=== PATIENT | female | born 1950 | race Caucasian/White ===

== ENCOUNTER 2022-10-21 07:38 | Outpatient (REF) | payer MEDICARE, SELFPAY ==
--- NOTE | ~2022-10-21 | CT_ITS ---
EXAMINATION: CT HEAD WITHOUT CONTRAST CLINICAL INFORMATION: Amnesia COMPARISON: None available. TECHNIQUE: Contiguous axial imaging was performed from the skull base to vertex without intravenous administration of contrast. This CT examination was performed using dose optimization techniques as appropriate, variously including the following: *Automated exposure control *Adjustment of mA and/or kV according to patient size (this includes techniques or standardized protocols for targeted exams where dose is matched to indication/reason for exam; i.e. extremities or head) *Use of iterative reconstruction technique DLP: 712 mGy-cm FINDINGS: There is no evidence of an extra-axial collection. There is no evidence of intra or extra-axial hemorrhage. The ventricles and extra-axial CSF spaces are appropriate. Buckley-white matter differentiation is normal. A small calcification or ossification in the right frontal lobe, question from right anterior falx meningioma. This measures 2 x 1.4 cm in AP and longitudinal dimension sagittal reconstructed image 59 and 1 cm in transverse dimension coronal 128. No other mass, mass effect or infarct. No skull fracture. Degenerative changes at the left temporomandibular joint. Visualized paranasal sinuses, mastoid air cells and middle ears are clear. CT/CT head/brain wo IV con IMPRESSION: Question right frontal falx meningioma. Degenerative changes at the left temporomandibular joint.
== END 2022-10-21 07:39 | disposition home or self-care (01) ==
LOC: HO.CT 07:38
PROVIDERS: PCP Nurse Practitioner Family; Visit Provider Nurse Practitioner Family
DX: R41.3 Other amnesia (principal)
CPT/HCPCS: 70450

== ENCOUNTER 2023-01-11 16:28 | Outpatient (REF) | payer MEDICARE, SELFPAY ==
--- NOTE | ~2023-01-11 | MR_ITS ---
MR BRAIN WITHOUT AND WITH CONTRAST CLINICAL INFORMATION: Benign neoplasm of the meninges. COMPARISON: Head CT 10/21/2022. TECHNIQUE: Multiplanar, multisequence MRI of the brain was obtained before and after the intravenous administration of 7 mL of Gadavist. FINDINGS: There is a 2 cm AP by 1.4 cm TV by 1.6 cm CC homogeneously enhancing extra-axial mass along the high right falx cerebri that is most compatible with a meningioma. There is no adjacent parenchymal edema. There is no additional pathologic enhancement intracranially. There is no hydrocephalus, extra-axial surface collection, or herniation. There is mild chronic microangiopathy. The major flow voids at the skull base are preserved. There is no acute infarct on diffusion-weighted imaging. There is no intracranial hemorrhage on the gradient recalled echo acquisition. The midline structures are normal. The cerebellar tonsils are normally positioned. The cerebellum and brainstem are normal. The craniocervical junction is normal. Osseous marrow signal intensity is homogenous. The visualized soft tissues are unremarkable. MR/MR head/brain wo/w con IMPRESSION: There is a 2 cm high right parafalcine meningioma. No adjacent parenchymal edema.
[2023-01-11] MEDS: gadobutroL 7.5 ML VIAL IVPUSH (17:21)
== END 2023-01-11 16:29 | disposition home or self-care (01) ==
LOC: HO.MRI 16:28
PROVIDERS: PCP Nurse Practitioner Family; Visit Provider Nurse Practitioner Family
DX: D32.9 Benign neoplasm of meninges, unspecified (principal)
CPT/HCPCS: 70553; A9585

== ENCOUNTER 2023-04-06 09:03 | Outpatient (AMB) | payer MEDICARE, SELFPAY ==
--- NOTE | 2023-04-06 09:11 | AM.OFFVISMDC ---
Intake Vital Signs 04/06/23 09:12 Height 5 ft 1.02 in Weight 155 lb BMI 29.3 BP 102/60 Blood Pressure Location Lt brachial Position Sitting Pulse 91 Pulse Source Pulse Oximeter Pulse Oximetry (%) 96 Oxygen Delivery Method Room Air Intake Visit Reasons: AWV, Hypothyroidism Intake Note: Patient here for an annual wellness visit, hypothyroidism Conveyor Worker Required: No Accompanied by: Spouse Allergies No Known Allergies Allergy (Verified 04/06/23 09:26) Medication List - Last Reconciled 04/06/23 by CRISTOPHER Puckett levothyroxine 112 mcg PO DAILY HPI HPI Comments History of Present Illness Details 72-year-old female past medical history significant for hypothyroidism, meningioma. Patient presents today for annual wellness visit. Patient was seen by [facility]surgery for evaluation of meningioma, states benign brain mass recommended follow-up in 6 months for repeat MRI. Patient reports has upcoming appointment to establish care with Neurology for ongoing memory problems. Mammogram: 2 years ago, ordered Bone density: ordered Colonoscopy:4 years ago, normal, Eye exam: July 2022. Fasting labs ordered UTD pna vaccine, Flu shot declined [place] of care was reviewed with patient patient was provided with a written screening schedule. Healthcare proxy MOLST forms given to patient has been advised to bring completed forms backed office to be scanned to chart. [facility] Medical History (Updated 04/06/23 @ 09:39 by CRISTOPHER Puckett) Type 2 diabetes mellitus Surgical History H/O abdominoplasty S/P complete hysterectomy Family History Mother HTN (hypertension) Father Alcoholic cirrhosis of liver Substance use disorder Brother Alcoholic cirrhosis of liver Substance use disorder Sister Liver problem Social History Housing: House Alcohol intake: current Alcohol intake frequency: holidays/special occasions only Patient Tobacco Use Status: Never used Tobacco service: No Current occupational status: retired Cognitive needs: No Hearing needs: No Vision needs: Yes Questionnaire Medicare Wellness Checkup [age] What gender do you identify with?: female During the past 4 weeks, how much have you been bothered by emotional problems such as feeling anxious, depressed, irritable, sad or downhearted, and blue?: slightly During the past 4 weeks, has your physical & emotional health limited your social activities with family, friends, neighbors, or groups?: not at all During the past 4 weeks, how much bodily pain have you generally had?: no pain During the past 4 weeks, was someone available to help you if you needed & wanted help?: yes, as much as I wanted During the past 4 weeks, what was the hardest physical activity you could do for at least 2 minutes?: moderate Can you get to places out of walking distance without help? (For eg., can you travel alone on buses, taxis or drive your car?): Yes Can you go shopping for groceries or clothes without someone's help?: Yes Can you prepare your own meals?: Yes Can you do your housework without help?: Yes Because of any health problems, do you need the help of another person with your personal care needs such as eating, bathing, dressing or getting around the house?: No Can you handle your own money without help?: Yes During the past 4 weeks, how would you rate your health in general?: good During the past 4 weeks how have things been going for you?: good & bad parts about equal Are you having difficulties driving your car?: no Do you always fasten your seat belt when you are in a car?: yes, usually During past 4 weeks, have you been bothered by the following: never: Falling or dizzy when standing up, Sexual problems?, Trouble eating well?, Teeth or denture problems? and Problems using the telephone? and sometimes: Tiredness or fatigue? Have you fallen 2 or more times in the past year?: No Are you afraid of falling?: No Are you a smoker?: no During the past 4 weeks, how many drinks of wine, beer, or other alcoholic beverages did you have?: no alcohol at all Do you exercise for about 20 minutes 3 or more times a week?: yes, some of the time Have you been given information to help with the following?: no: Hazards in your house that might hurt you? and no: Keeping track of your medications? How often do you have trouble taking medicines the way you have been told to take them?: I always take medicine as prescribed How confident are you that you can control & manage most of your health problems?: very confident What is your race?: or origin or descent Mini Mental State Exam (MMSE) Orientation What is the (year) (season) (date) (day) (month)?: year, season, date, day and month Score Score: 5 Activity of Daily Living Bathing - sponge bath, tub bath or shower: receives no assistance (gets in/out by self, if usual bathing means Dressing - getting clothes from closets & drawers, including inner/outer garments & fasteners.: gets clothes & gets completely dressed without help Toileting - going to the 'toilet room' for urine/bowel elimination & cleaning self/arranging clothes: goes to toilet room, cleans self, arranges clothes without help Transfer: moves in & out of bed and chair without help (may use support object) Continence: controls urination/bowel movements completely by self Feeding: feeds self without help Total Score: 0 Information obtained from: patient Using telephone: independent Traveling: independent Shopping: independent Preparing meals: independent Housework: independent Taking medicine: independent Managing money: independent PHQ-9 Over the last 2 weeks, how often have you been bothered by any of the following problems? 1. Little interest or pleasure in doing things: more than half the days 2. Feeling down, depressed, or hopeless: more than half the days 3. Trouble falling or staying asleep, or sleeping too much: more than half the days 4. Feeling tired or having little energy: more than half the days 5. Poor appetite or overeating: several days 6. Feeling bad about yourself - or that you are a failure or have let yourself or your family down: several days 7. Trouble concentrating on things, such as reading the newspaper or watching television: more than half the days 8. Moving or speaking so slowly that other people could have noticed. Or the opposite - being so fidgety or restless that you have been moving around a lot more than usual: not at all 9. Thoughts that you would be better off or of hurting yourself in some way: not at all Total score: 12 Depression Screening Interpretation: Positive (Referred to counselor) Depression Screening Done: Yes 50143 - PHQ-9 Billing: Yes Source: Developed by Drs. Odilon Copeland, Maritza Valladares, Odin Arndt and colleagues, with an educational parris from [employer]. Thrive Questionnaire Date Thrive assessed: 04/06/23 I am a: Patient What is your living situation today?: I have a steady place to live Within the past 12 months, did the food you bought not last and you didn't have the money to get more?: Never true Within the past 12 months, did you worry whether your food would run out before you got money to buy more?: Never true Do you have trouble paying for medicines?: No Do you have trouble getting transportation to medical appointments?: No Do you have trouble paying your heating and electricity bill?: No Do you have trouble taking care of your child, family member or friend?: No Do you have trouble with day-to-day activities such as bathing, preparing meals, shopping, managing finances, etc.?: No Are you currently unemployed and looking for a job?: No Are you interested in more education?: No Please select the resources that you would like help with: None Currently or been in a relationship where the following occur: no concerns reported JANES-7 AMB Questionnaire JANES-7 Date JANES - 7 assessed: 04/06/23 Feeling nervous, anxious, or on edge: 0 = Not at all Not being able to stop or control worryin = Not at all Worrying too much about different things: 0 = Not at all Trouble relaxin = Not at all Being so restless that it is hard to sit still: 0 = Not at all Becoming easily annoyed or irritable: 0 = Not at all Feeling afraid as if something awful might happen: 0 = Not at all Total JANES-7 score (0-4 normal; 5-9 mild; 10-14 moderate; 15-21 severe): 0 Source: Developed by Drs. Odilon Copeland, Maritza Valladares, Odin Arndt and colleagues, with an educational parris from [employer]. JANES-7 Assessment Billing JANES-7 Assessment Tool: JANES-7 Assessment 84831 Physical Exam Vital Signs: Last Vital Signs Pulse 91 04/06/23 09:12 BP 102/60 04/06/23 09:12 Pulse Ox 96 04/06/23 09:12 Oxygen Delivery Method Room Air 04/06/23 09:12 BMI result Body Mass Index 29.3 Const General: cooperative and no acute distress Orientation/consciousness: patient oriented x3 HEENT Ears: other (whisper test: pass) Neuro General: patient oriented x3 Gait exam (Neuro): Normal gait present Coordination: tandem gait normal and Romberg test negative Office Procedures Flu Questionnaire Does the patient have a severe egg allergy?: No Immunizations flu vacc [id number] 6mos up(PF) 60 mcg(15 mcgx4)/0.5 mL IM syringe Performing Provider: CRISTOPHER Puckett [facility] Documented (not given) by: TERI Laureano on 04/06/23 09:23 Reason Not Given: Patient Refused Assessment & Plan Assessment & Plan (1) Depression: Code(s): F32.A - Depression, unspecified Plan: Referral entered to counseling. Denies SI/HI (2) Medicare annual wellness visit, initial: Code(s): Z00.00 - Encounter for general adult medical examination without abnormal findings Plan: Follow up in 1 year Plan Follow up in 6 months. Orders: Orders Influenza [id number] Immunization Today Z23 - Encounter for immunization Complete Blood Count Auto Diff Today Z13.0 - Encounter for screening for diseases of the blood and blood-forming organs and certain disorders involving the immune mechanism Vitamin D 25-OH Total Today Z13.21 - Encounter for screening for nutritional disorder Hemoglobin A1c Today E11.9 - Type 2 diabetes mellitus without complications Comprehensive [place]. Panel Fast Today F32.A - Depression, unspecified Lipid Panel Today Z13.220 - Encounter for screening for lipoid disorders TSH reflex Free T4 Today E89.0 - Postprocedural hypothyroidism, Y84.2 - Radiological procedure and radiotherapy as the cause of abnormal reaction of the patient, or of later complication, without mention of misadventure at the time of the procedure MM screening mammo BI Today Z12.31 - Encounter for screening mammogram for malignant neoplasm of breast XR DEXA axial skeleton Today N95.9 - Unspecified menopausal and perimenopausal disorder Referrals Counseling Referral F32.A - Depression, unspecified Medications: New levothyroxine 112 mcg PO DAILY 90 tabs 1RF Quality Reporting (2019) Depression/Bipolar (159/160/161/177) PHQ-9: Total score: 12 Coding Level of Care Code Medicare First (G0438) Diagnoses Depression F32.A Medicare annual wellness visit, initial Z00.00 Additional Codes JANES-7 Assessment Billing - JANES-7 Assessment Tool: JANES-7 Assessment [id number] ([id number]) Advance Care Planning Date of discussion: 04/06/23 Who was present: Patient and Forms completed: Health Care Proxy and MOLST Actual minutes spent: 2 Did not discuss due to Cultural/Spiritual beliefs: No
[2023-04-06 09:12] VITALS: BP 102/60; PULSE 91; O2SAT 96; BMI 29.3
== END 2023-04-06 09:50 | disposition home or self-care (01) ==
PROVIDERS: PCP Nurse Practitioner Family; Visit Provider Nurse Practitioner Family
DX: Z00.00 Encounter for general adult medical examination without abnormal findings (principal); F32.A Depression, unspecified
CPT/HCPCS: G0438; G0439

== ENCOUNTER 2023-05-04 08:46 | Outpatient (REF) | payer MEDICARE, SELFPAY ==
[2023-05-04 09:05] LABS: MANUAL DIFF FLAG NO
[2023-05-04 10:01] LABS: Basophils Percent Auto 0.7 % (0-2); Eosinophils Absolute Auto 0.2 X10*3/uL (0.0-0.4); Eosinophils Percent Auto 3.2 % (0-4); Hematocrit 40.7 % (37.0-47.0); Hemoglobin 13.2 g/dl (12.0-16.0); Imm Gran Abs Auto 0.02 X10*3/uL (0.00-0.03); Imm Gran Pct Auto 0.3 % (0.0-0.4); Lymphocytes Absolute Auto 1.8 X10*3/uL (1.2-4.9); Lymphocytes Percent Auto 29.6 % (20-40); Mean Corpuscular HGB Conc 32.4 g/dl (31.0-35.0); Mean Corpuscular Hemoglobin 29.4 pg (27.0-33.0); Mean Corpuscular Volume 90.6 fL (80.0-98.0); Mean Platelet Volume 10.4 fL (9.4-12.3); Monocytes Absolute Auto 0.4 X10*3/uL (0.1-1.2); Monocytes Percent Auto 6.2 % (2-11); Neutrophils Absolute Auto 3.6 x10*3/uL (2.0-8.3); Platelet Count 266 X10*3/uL (160-400); Red Blood Count 4.49 X10*6/uL (4.20-5.50); Red Cell Distribution Width 13.2 % (11.0-16.0)
[2023-05-04 10:29] LABS: Estimated Average Glucose 126 mg/dL
[2023-05-04 11:05] LABS: Alanine Aminotransferase 13 U/L (0-31); Albumin Level 4.3 g/dL (3.5-5.0); Alkaline Phosphatase 79 U/L (39-117); Anion Gap 14 (12-20); Aspartate Amino Transferase 18 U/L (5-31); Bilirubin Total 0.9 mg/dL (0.0-1.0); Blood Urea Nitrogen 14 mg/dL (9-16); Calcium 9.4 mg/dL (8.4-10.2); Carbon Dioxide 23 mmol/L (22-29); Chloride 108 mmol/L (96-108); Cholesterol 257 mg/dL (<200); Estimated Glomerular Filt Rate 53; Glucose Fasting 126 mg/dL (60-99); HDL Cholesterol 43 mg/dL (>40); LDL Cholesterol Calculated 191 mg/dL (<100); Sodium 141 mmol/L (135-145); Total Protein 7.6 g/dL (6.5-8.0); Triglycerides 115 mg/dL (<150)
[2023-05-04 11:06] LABS: TSH reflex Free T4 2.71 uIU/mL (0.32-4.0); Vitamin D 25-OH Total 29.2 ng/mL (>30)
== END 2023-05-04 08:47 | disposition home or self-care (01) ==
LOC: HO.LAB 08:46
PROVIDERS: PCP Nurse Practitioner Family; Visit Provider Nurse Practitioner Family
DX: E11.9 Type 2 diabetes mellitus without complications (principal); F32.A Depression, unspecified; E89.0 Postprocedural hypothyroidism; Y84.2 Radiological procedure and radiotherapy as the cause of abnormal reaction of the patient, or of later complication, without mention of misadventure at the time of the procedure; Z13.220 Encounter for screening for lipoid disorders; Z13.0 Encounter for screening for diseases of the blood and blood-forming organs and certain disorders involving the immune mechanism; Z13.21 Encounter for screening for nutritional disorder
CPT/HCPCS: 36415; 80053; 80061; 82306; 83036; 84443; 85025

== ENCOUNTER 2023-05-10 16:19 | Outpatient (REF) | payer MEDICARE, SELFPAY ==
[2023-05-10 17:29] LABS: Influenza A PCR NEGATIVE (Negative); Influenza B PCR NEGATIVE (Negative); Resp Syncy Virus RNA Qual PCR NEGATIVE (Negative); SARS COV2 PCR INHOUSE NEGATIVE (Negative)
== END 2023-05-10 16:20 | disposition home or self-care (01) ==
LOC: HO.LAB 16:19
PROVIDERS: PCP Nurse Practitioner Family; Visit Provider Nurse Practitioner Family
DX: Z11.52 Encounter for screening for COVID-19 (principal); R09.89 Other specified symptoms and signs involving the circulatory and respiratory systems; Z20.822 Contact with and (suspected) exposure to COVID-19
CPT/HCPCS: 0241U

== ENCOUNTER 2023-05-31 08:24 | Outpatient (REF) | payer OTHER, SELFPAY ==
--- NOTE | ~2023-05-31 | MM_ITS ---
EXAMINATION: MM SCREENING DIGITAL BREAST TOMOSYNTHESIS, BILATERAL CLINICAL INFORMATION: Screening. Asymptomatic. COMPARISON: Mammography: Left mammogram-ductogram 09/26/2014 ([facility]). No additional priors. TECHNIQUE: Digital breast tomosynthesis is performed in both the craniocaudal and mediolateral oblique views along with computer-aided detection (CAD). Synthesized 2D images are generated from the tomosynthesis. FINDINGS: The breasts are heterogeneously dense, which may obscure small masses (ACR BI-RADS breast composition Category c). There is a post benign biopsy clip in the 9:00 axis of the left breast. There are benign type calcifications scattered in both breasts. No suspicious or aggressive changes. In the upper outer right breast, anterior one third, there is a focal asymmetric density for which diagnostic views are suggested. Recommend spot compression right MLO, right CC, and a full-field 3-D lateral ML view, with ultrasound to follow if finding should persist. There are no suspicious findings in the left breast. MM/MM tomosynthesis screening BI IMPRESSION: Focal asymmetric density right breast upper outer quadrant, anterior one third, for which diagnostic views are recommended as described above. No suspicious findings in the left breast. ASSESSMENT: BI-RADS BI-RADS 0 - Incomplete: Needs additional Imaging. RECOMMENDATION: 1. Additional views of the right breast. 2. Targeted ultrasound if warranted after review of the additional views. 3. Radiology department staff will contact the patient for additional imaging. Additional Imaging required This examination should not preclude the clinical evaluation of a suspicious palpable abnormality. This patient's information was entered into a reminder system with a target due date for their next mammogram.
== END 2023-05-31 08:25 | disposition home or self-care (01) ==
LOC: HO.MAMMO 08:24
PROVIDERS: PCP Nurse Practitioner Family; Visit Provider Nurse Practitioner Family
DX: Z12.31 Encounter for screening mammogram for malignant neoplasm of breast (principal); Z13.820 Encounter for screening for osteoporosis; Z78.0 Asymptomatic menopausal state
CPT/HCPCS: 77063; 77067; 77080

== ENCOUNTER → 2023-05-31 09:00 | Outpatient (BNV) | payer OTHER, SELFPAY | PROVIDERS: PCP Nurse Practitioner Family; Visit Provider Radiology Diagnostic Radiology | DX: Z12.31 Encounter for screening mammogram for malignant neoplasm of breast (principal) | CPT/HCPCS: 77063; 77067 ==

== ENCOUNTER 2023-07-03 12:51 | Outpatient (REF) | payer OTHER, SELFPAY ==
--- NOTE | ~2023-07-03 | MM_ITS ---
EXAMINATION: MM DIAGNOSTIC DIGITAL BREAST TOMOSYNTHESIS, RIGHT CLINICAL INFORMATION: Follow-up for focal asymmetric density right breast upper outer quadrant, anterior one third. COMPARISON: Mammography: 05/31/2023. 5. 1:15. TECHNIQUE: Digital breast tomosynthesis is performed. 2D images are generated from the tomosynthesis. The following views are obtained: 3-D full-field right mediolateral view, as well as right 2-D spot magnification CC and MLO views. FINDINGS: The breasts are heterogeneously dense, which may obscure small masses (ACR BI-RADS breast composition Category c). Additional views done show complete dissipation of the focal asymmetry seen in the right breast upper outer quadrant. Findings are consistent with superimposition artifact of normal overlapping breast tissue. There is no persistent suspicious abnormality. No new findings right breast. MM/MM tomosynthesis added views R IMPRESSION: No findings suspicious for malignancy. No persistent abnormality after diagnostic views. Recommend the patient resume annual routine screening. ASSESSMENT: BI-RADS BI-RADS 1 - Negative RECOMMENDATION: 1 year F/U Results were provided to the patient at time of visit by the technologist. This patient's information was entered into a reminder system with a target due date for their next mammogram.
== END 2023-07-03 12:52 | disposition home or self-care (01) ==
LOC: HO.MAMMO 12:51
PROVIDERS: PCP Nurse Practitioner Family; Visit Provider Nurse Practitioner Family
DX: N64.89 Other specified disorders of breast (principal)
CPT/HCPCS: 77061; 77065

== ENCOUNTER → 2023-07-03 13:00 | Outpatient (BNV) | payer OTHER, SELFPAY | PROVIDERS: PCP Nurse Practitioner Family; Visit Provider Radiology Diagnostic Radiology | DX: N63.11 Unspecified lump in the right breast, upper outer quadrant (principal) | CPT/HCPCS: 77065; G0279 ==

== ENCOUNTER 2023-07-06 14:13 | Outpatient (AMB) | payer OTHER, SELFPAY ==
[2023-07-06 14:15] VITALS: BP 108/68; PULSE 100; O2SAT 98; BMI 26.2
--- NOTE | 2023-07-06 14:15 | MHC.PC.OV ---
Vital Signs 07/06/23 14:15 Height 5 ft 1.02 in Weight 139 lb BMI 26.2 BP 108/68 Blood Pressure Location Lt brachial Position Sitting Pulse 100 Pulse Source Pulse Oximeter Pulse Oximetry (%) 98 Oxygen Delivery Method Room Air Intake Visit Reasons: dizzy spells Intake Note: pt states dizziness and left leg pain X2-3months Sugar Laboratory Assistant Required: No Allergies No Known Allergies Allergy (Verified 07/06/23 14:15) Medication List - Last Reconciled 07/06/23 by Marilynn Weston MD levothyroxine 112 mcg PO DAILY magnesium 200 mg PO DAILY Tobacco use date assessed: 07/06/23 Fall risk assessment: No Falls in past year Last assessed Fall Risk: 07/06/23 Dental Screening Dental Screen Date: 07/06/23 HPI dizzy spells HPI Details 72-year-old female with generalized anxiety and depression last seen in March 2023. Noted weight loss. Blood work done April. noted weight loss and loss of apetitte. R ear pain [facility] Medical History (Updated 07/06/23 @ 15:25 by Marilynn Weston MD) Type 2 diabetes mellitus Surgical History H/O abdominoplasty S/P complete hysterectomy Family History Mother HTN (hypertension) Father Alcoholic cirrhosis of liver Substance use disorder Brother Alcoholic cirrhosis of liver Substance use disorder Sister Liver problem Social History Housing: House Alcohol intake: current Alcohol intake frequency: holidays/special occasions only Patient Tobacco Use Status: Never used Tobacco service: No Current occupational status: retired Cognitive needs: No Hearing needs: No Vision needs: Yes Questionnaire PHQ-9 Over the last 2 weeks, how often have you been bothered by any of the following problems? 1. Little interest or pleasure in doing things: more than half the days 2. Feeling down, depressed, or hopeless: more than half the days 3. Trouble falling or staying asleep, or sleeping too much: more than half the days 4. Feeling tired or having little energy: more than half the days 5. Poor appetite or overeating: several days 6. Feeling bad about yourself - or that you are a failure or have let yourself or your family down: several days 7. Trouble concentrating on things, such as reading the newspaper or watching television: more than half the days 8. Moving or speaking so slowly that other people could have noticed. Or the opposite - being so fidgety or restless that you have been moving around a lot more than usual: not at all 9. Thoughts that you would be better off or of hurting yourself in some way: not at all Total score: 12 Depression Screening Interpretation: Positive (Referred to counselor) Depression Screening Done: Yes 96630 - PHQ-9 Billing: Yes Source: Developed by Drs. Odilon Copeland, Odin Hartley and colleagues, with an educational parris from [employer]. Thrive Questionnaire Date Thrive assessed: 07/06/23 I am a: Patient What is your living situation today?: I have a steady place to live Within the past 12 months, did the food you bought not last and you didn't have the money to get more?: Never true Within the past 12 months, did you worry whether your food would run out before you got money to buy more?: Never true Do you have trouble paying for medicines?: No Do you have trouble getting transportation to medical appointments?: No Do you have trouble paying your heating and electricity bill?: No Do you have trouble taking care of your child, family member or friend?: No Do you have trouble with day-to-day activities such as bathing, preparing meals, shopping, managing finances, etc.?: No Are you currently unemployed and looking for a job?: No Are you interested in more education?: No Please select the resources that you would like help with: None THRIVE Score: 0 AUDIT C Alcohol Use Questionnaire (AUDIT-C) 1. How often do you have a drink containing alcohol?: Never 3. How often do you have six or more drinks on one occasion?: Never Total Score: 0 JANES-7 AMB Questionnaire JANES-7 Date JANES - 7 assessed: 07/06/23 Source: Developed by Drs. Odilon Copeland, Odin Hartley and colleagues, with an educational parris from [employer]. Physical exam (Primary Care) Vital Signs: Last Vital Signs Pulse 100 07/06/23 14:15 BP 108/68 07/06/23 14:15 Pulse Ox 98 07/06/23 14:15 Oxygen Delivery Method Room Air 07/06/23 14:15 BMI result Body Mass Index 26.2 Tobacco/Smoking Status: Tobacco use Status Tobacco use date assessed 07/06/23 07/06/23 14:17 Patient Tobacco Use Status Never used Tobacco 07/06/23 14:17 PHQ-9: PHQ-9 Score PHQ-9: Total score 12 07/06/23 14:54 Depression Screening Interpretation: Positive (Referred to counselor) Thrive Assessment: Date of Thrive Assessment Date Thrive assessed 07/06/23 07/06/23 14:17 Const General: alert; No acute distress Eyes Conjunctivae: conjunctivae normal Resp Auscultation: clear to auscultation bilaterally Cardio Rate: regular rate Rhythm: regular rhythm GI Inspection: Yes normal to inspection Extrem General: Yes normal to inspection and No edema Assessment and Plan Assessment & Plan (1) Type 2 diabetes mellitus: Code(s): E11.9 - Type 2 diabetes mellitus without complications Plan: Decrease the amount of carbohydrate intake, pasta, bread, rice and potatoes are all sugar and that is aside from all the sweet stuff, remember that fruits are good but they are Sweet also. Hemoglobin A1c goal of less than 7.0. 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: Code(s): E89.0 - Postprocedural hypothyroidism; Y84.2 - Radiological procedure and radiotherapy as the cause of abnormal reaction of the patient, or of later complication, without mention of misadventure at the time of the procedure Plan: Continue with thyroid medication (3) Depression: Code(s): F32.A - Depression, unspecified Plan: Discussion about treatment and counseling (4) Meningioma: Code(s): D32.9 - Benign neoplasm of meninges, unspecified (5) Weight loss: Code(s): R63.4 - Abnormal weight loss (6) Colon cancer screening: Code(s): Z12.11 - Encounter for screening for malignant neoplasm of colon Orders: Orders Comprehensive Met. Panel 3 Months E89.0 - Postprocedural hypothyroidism, Y84.2 - Radiological procedure and radiotherapy as the cause of abnormal reaction of the patient, or of later complication, without mention of misadventure at the time of the procedure Hemoglobin A1c 3 Months E89.0 - Postprocedural hypothyroidism, Y84.2 - Radiological procedure and radiotherapy as the cause of abnormal reaction of the patient, or of later complication, without mention of misadventure at the time of the procedure Complete Blood Count Auto Diff 3 Months E89.0 - Postprocedural hypothyroidism, Y84.2 - Radiological procedure and radiotherapy as the cause of abnormal reaction of the patient, or of later complication, without mention of misadventure at the time of the procedure Free T4 (Free Thyroxine) 3 Months E89.0 - Postprocedural hypothyroidism, Y84.2 - Radiological procedure and radiotherapy as the cause of abnormal reaction of the patient, or of later complication, without mention of misadventure at the time of the procedure Thyroid Stimulating Hormone 3 Months E89.0 - Postprocedural hypothyroidism, Y84.2 - Radiological procedure and radiotherapy as the cause of abnormal reaction of the patient, or of later complication, without mention of misadventure at the time of the procedure Lipid Panel 3 Months E78.00 - Pure hypercholesterolemia, unspecified, E89.0 - Postprocedural hypothyroidism, Y84.2 - Radiological procedure and radiotherapy as the cause of abnormal reaction of the patient, or of later complication, without mention of misadventure at the time of the procedure Referrals Gastroenterology Referral R63.4 - Abnormal weight loss, Z12.11 - Encounter for screening for malignant neoplasm of colon Coding Level of Care Code Est Pt Level 4 (59627) Diagnoses Type 2 diabetes mellitus E11.9 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
== END 2023-07-06 15:41 | disposition home or self-care (01) ==
PROVIDERS: PCP Nurse Practitioner Family; Visit Provider Internal Medicine
DX: E11.9 Type 2 diabetes mellitus without complications (principal); D32.9 Benign neoplasm of meninges, unspecified; E89.0 Postprocedural hypothyroidism; Y84.2 Radiological procedure and radiotherapy as the cause of abnormal reaction of the patient, or of later complication, without mention of misadventure at the time of the procedure; F32.A Depression, unspecified; R63.4 Abnormal weight loss; Z12.11 Encounter for screening for malignant neoplasm of colon
CPT/HCPCS: 99214

== ENCOUNTER 2023-08-01 11:23 | Outpatient (AMB) | payer OTHER, SELFPAY ==
[2023-08-01 11:26] VITALS: BP 100/60; PULSE 93; O2SAT 98; BMI 26.4
--- NOTE | 2023-08-01 11:26 | A.OFFPC_ITS ---
Vital Signs 08/01/23 11:26 Height 5 ft 1.02 in Weight 140 lb 0.8 oz BMI 26.4 BP 100/60 Blood Pressure Location Lt brachial Position Sitting Pulse 93 Pulse Source Pulse Oximeter Temp Source Skin Pulse Oximetry (%) 98 Oxygen Delivery Method Room Air Intake Visit Reasons: Memory getting worse Correction Warden Required: No Allergies No Known Allergies Allergy (Verified 08/01/23 11:27) Medication List - Last Reconciled 08/01/23 by Marilynn Weston MD levothyroxine 112 mcg PO DAILY magnesium 200 mg PO DAILY Tobacco use date assessed: 08/01/23 Fall risk assessment: No Falls in past year Last assessed Fall Risk: 08/01/23 Dental Screening Dental Screen Date: 08/01/23 HPI Memory getting worse HPI Details 72-year-old female with a history of hyp othyroidism history of meningioma history of diabetes mellitus coming in for follow-up. Last seen in June 2023 controlled diabetes mellitus elevated LDL. Blood work recently requested and done. PAtient is relating very depressed and sister in [place] has cirrhosis and need of liver tranplant and has cancer of breast . - patient has an upcoming schedule for Neurology, neurosurgeon and MRI brain. complains of leg cramps. complains also of pain on the L shoulder deny fall occuring 2 months already [facility] Medical History (Updated 08/01/23 @ 12:20 by Marilynn Weston MD) Type 2 diabetes mellitus Surgical History H/O abdominoplasty S/P complete hysterectomy Family History Mother HTN (hypertension) Father Alcoholic cirrhosis of liver Substance use disorder Brother Alcoholic cirrhosis of liver Substance use disorder Sister Liver problem Social History Housing: House Alcohol intake: current Alcohol intake frequency: holidays/special occasions only Patient Tobacco Use Status: Never used Tobacco service: No Current occupational status: retired Cognitive needs: No Hearing needs: No Vision needs: Yes Questionnaire Thrive Questionnaire Date Thrive assessed: 07/06/23 I am a: Patient What is your living situation today?: I have a steady place to live Within the past 12 months, did the food you bought not last and you didn't have the money to get more?: Never true Within the past 12 months, did you worry whether your food would run out before you got money to buy more?: Never true Do you have trouble paying for medicines?: No Do you have trouble getting transportation to medical appointments?: No Do you have trouble paying your heating and electricity bill?: No Do you have trouble taking care of your child, family member or friend?: No Do you have trouble with day-to-day activities such as bathing, preparing meals, shopping, managing finances, etc.?: No Are you currently unemployed and looking for a job?: No Are you interested in more education?: No Please select the resources that you would like help with: None THRIVE Score: 0 AUDIT C Alcohol Use Questionnaire (AUDIT-C) 1. How often do you have a drink containing alcohol?: Never 3. How often do you have six or more drinks on one occasion?: Never Total Score: 0 JANES-7 AMB Questionnaire JANES-7 Date JANES - 7 assessed: 07/06/23 Source: Developed by Drs. Odilon Copeland, Maritza Valladares, Odin Arndt and colleagues, with an educational parris from [employer]. Physical exam (Primary Care) Vital Signs: Last Vital Signs Pulse 93 08/01/23 11:26 BP 100/60 08/01/23 11:26 Pulse Ox 98 08/01/23 11:26 Oxygen Delivery Method Room Air 08/01/23 11:26 BMI result Body Mass Index 26.4 Tobacco/Smoking Status: Tobacco use Status Tobacco use date assessed 08/01/23 08/01/23 11:27 Patient Tobacco Use Status Never used Tobacco 08/01/23 11:27 Thrive Assessment: Date of Thrive Assessment Date Thrive assessed 07/06/23 08/01/23 11:27 Const General: alert; No acute distress Eyes Conjunctivae: conjunctivae normal Resp Auscultation: clear to auscultation bilaterally Cardio Rate: regular rate Rhythm: regular rhythm GI Inspection: Yes normal to inspection Extrem General: Yes normal to inspection and No edema Assessment and Plan Assessment & Plan (1) Type 2 diabetes mellitus: Code(s): E11.9 - Type 2 diabetes mellitus without complications Plan: Decrease the amount of carbohydrate intake, pasta, bread, rice and potatoes are all sugar and that is aside from all the sweet stuff, remember that fruits are good but they are Sweet also. 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 Be it pork or beef they have a lot of cholesterol LDL goal of less than 100 and triglyceride of less than 150 declined any new medication for now. Advised to retest in 3 months (4) Memory changes: Code(s): R41.3 - Other amnesia Plan: Mini-mental status exam (5) Major depression: Code(s): F32.9 - Major depressive disorder, single episode, unspecified Plan: Referral to counseling is done declined any new medication (6) Bicipital tendinitis of left shoulder: Code(s): M75.22 - Bicipital tendinitis, left shoulder Plan: Sent for physical therapy Orders: Orders PT Evaluation and Treatment Today M75.22 - Bicipital tendinitis, left shoulder Referrals Psychiatry Referral F32.9 - Major depressive disorder, single episode, unspecified Coding Level of Care Code Est Pt Level 4 (16126) Diagnoses Type 2 diabetes mellitus E11.9 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
== END 2023-08-01 12:27 | disposition home or self-care (01) ==
PROVIDERS: PCP Nurse Practitioner Family; Visit Provider Internal Medicine
DX: E11.9 Type 2 diabetes mellitus without complications (principal); E89.0 Postprocedural hypothyroidism; Y84.2 Radiological procedure and radiotherapy as the cause of abnormal reaction of the patient, or of later complication, without mention of misadventure at the time of the procedure; E78.00 Pure hypercholesterolemia, unspecified; R41.3 Other amnesia; F32.9 Major depressive disorder, single episode, unspecified; M75.22 Bicipital tendinitis, left shoulder
CPT/HCPCS: 99214

== ENCOUNTER 2023-08-21 09:28 | Outpatient (AMB) | payer OTHER, SELFPAY ==
--- NOTE | 2023-08-21 09:41 | MHC.OFFVIS ---
Intake Vital Signs 08/21/23 09:42 Height 5 ft 1 in Weight 140 lb BMI 26.4 BP 102/64 Blood Pressure Location Rt brachial Position Sitting Respiration 16 Pulse 101 H Pulse Source Pulse Oximeter Pulse Oximetry (%) 97 Oxygen Delivery Method Room Air Intake Visit Reasons: [id number] Intake Note: Pt presents for new pt evaluation for memory issues. Manager Support Services Required: No Allergies No Known Allergies Allergy (Verified 08/21/23 09:42) Medication List - Last Reconciled 08/21/23 by Leila Calvillo MD levothyroxine 112 mcg PO DAILY magnesium 200 mg PO DAILY HPI HPI Comments History of Present Illness Details 72y/o female comes for evaluation of cognitive issues. she reports short term memory issues for about 1 1/2 years. she forgets events that happened a day before, has trouble with names, misplaces things in her house. trouble with appointments, medicines, forgets conversations etc. she is independent in all her ADLS> she denies any difficulty with her daily chores- like using her microwave, washer , remote etc she has mild difficulty with using computers, Her takes care of her finances. she has depression and anxiety- reasonable controlled. she is scared to go out alone , worried that she will get lost.No known head injury. she has difficulty falling asleep, staying asleep, snoring and has excessive daytime sleepiness. [facility] Medical History (Updated 08/21/23 @ 10:10 by Leila Calvillo MD) Hypersomnia Snoring Cognitive changes Type 2 diabetes mellitus Surgical History H/O abdominoplasty S/P complete hysterectomy Family History Mother HTN (hypertension) Father Alcoholic cirrhosis of liver Substance use disorder Brother Alcoholic cirrhosis of liver Substance use disorder Sister Liver problem Social History Housing: House Alcohol intake: current Alcohol intake frequency: holidays/special occasions only Patient Tobacco Use Status: Never used Tobacco service: No Current occupational status: retired Cognitive needs: No Hearing needs: No Vision needs: Yes Physical Exam Vital Signs: Last Vital Signs Pulse 101 H 08/21/23 09:42 Resp 16 08/21/23 09:42 BP 102/64 08/21/23 09:42 Pulse Ox 97 08/21/23 09:42 Oxygen Delivery Method Room Air 08/21/23 09:42 BMI result Body Mass Index 26.4 Const General: cooperative, healthy appearing, comfortable and anxious Nutritional Appearance: average body habitus Orientation/consciousness: patient oriented x3 Eyes Pupils: Equal, round and reactive pupils present Neuro General: patient oriented x3, gait normal, tone normal, moves all extremities and no focal motor deficits Cranial nerves: Yes Facial sensation intact/muscles of mastication intact, Yes Equal, round and reactive pupils present, Yes Bilaterally intact EOM present, Yes Nystagmus not present, Yes Normal facial strength present, Yes Midline tongue present and Yes Symmetric palate elevation present Cognition (Neuro): normal cognition Gait exam (Neuro): Normal gait present Motor exam (neuro): 5/5 motor strength present throughout and Normal motor muscle tone present throughout Deep tendon reflexes (DTR's): Right triceps reflex intensity grade: 3+, Left triceps reflex intensity grade: 3+, Rt Biceps (C5, C6): 3+, Left biceps reflex intensity grade: 3+, Right brachioradialis reflex intensity grade: 3+, Left brachioradialis reflex intensity grade: 3+, Right patellar reflex intensity grade: 3+ and Left patellar reflex intensity grade: 3+ Coordination: [id number] test normal Psych Affect: Anxious affect present Orientation What is the (year) (season) (date) (day) (month)?: year, season, day and month Where are we (state) (county) (town or city) (hospital) (floor)?: state, town or city, hospital/clinic and floor Registration Name of 3 unrelated objects clearly and slowly, then ask patient to repeat all 3 of them. (1st repeat determines score. Make sure they can repeat all three): object 1, object 2 and object 3 Attention & Calculation (CHOOSE ONE) Spell WORLD backwards (DLROW): 5 letters Recall Ask patient to repeat the 3 items from question #3.: object 1 Language Show patient a wristwatch & ask what it is. Repeat for pencil.: watch and pencil Ask the patient to repeat the phrase 'No ifs, ands, or buts' after you.: correct Ask the patient to 'take a piece of paper with their right hand' 'fold paper in half' 'place paper on floor': take paper in right hand, fold paper in half and place paper on floor Print the sentence 'CLOSE YOUR EYES' on a piece. If patient actually closes eyes then score.: followed written direction Give patient a blank piece of paper & ask to write a sentence. Score if it contains a noun & verb.: sentence contains subject and verb Ask patient to copy figure of intersecting pentagons exactly. 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 No adjacent parenchymal edema. Assessment & Plan Assessment & Plan (1) Cognitive changes: Comment: she did well on MMSE today . Her changes are likely relate dto age, anxiety, ? sleep apnea. Code(s): R41.89 - Other symptoms and signs involving cognitive functions and awareness (2) Snoring: Code(s): R06.83 - Snoring (3) Hypersomnia: Code(s): G47.10 - Hypersomnia, unspecified Plan Vit B 12 level Reviewed MRI Home sleep test to r/o sleep apnea. Orders: Orders Vitamin B12 and Folate Today R41.89 - Other symptoms and signs involving cognitive functions and awareness RT home sleep study Today G47.10 - Hypersomnia, unspecified, R06.83 - Snoring Coding Level of Care Code New Pt Level 4 (84583) Diagnoses Cognitive changes R41.89 Snoring R06.83 Hypersomnia G47.10
[2023-08-21 09:42] VITALS: BP 102/64; PULSE 101; RESP 16; O2SAT 97; BMI 26.4
== END 2023-08-21 10:32 | disposition home or self-care (01) ==
PROVIDERS: PCP Nurse Practitioner Family; Visit Provider Psychiatry & Neurology Neurology
DX: R41.89 Other symptoms and signs involving cognitive functions and awareness (principal); R06.83 Snoring; G47.10 Hypersomnia, unspecified
CPT/HCPCS: 99204

== ENCOUNTER → 2023-08-21 09:28 | Outpatient (BNVA) | payer OTHER, SELFPAY | PROVIDERS: PCP Nurse Practitioner Family; Visit Provider Psychiatry & Neurology Neurology | DX: R41.89 Other symptoms and signs involving cognitive functions and awareness (principal); R06.83 Snoring; G47.10 Hypersomnia, unspecified | CPT/HCPCS: 99202 ==

== ENCOUNTER → 2023-08-23 11:11 | Outpatient (BNVA) | payer OTHER, SELFPAY | PROVIDERS: PCP Nurse Practitioner Family; Visit Provider Physician Assistant ==

== ENCOUNTER 2023-09-22 09:00 | Outpatient (RCR) | payer OTHER, SELFPAY ==
--- NOTE | 2023-09-04 13:03 | MHC.PT.EP ---
[facility] [place] Office [place] Office [place] Office [address] [phone] F: [phone] F: [phone] F: [phone] F: [phone] Physical Therapy Plan of Care Date of Evaluation: 08/29/23 Date of Surgery: Diagnosis: L shoulder pain Assessment: Pt is a 72yo female who was referred to PT for L shoulder pain. Skilled PT indicated to address pain, teach HEP to manage symptoms and promote periscap strength, normalize AROM and body mechanics, reduce impingement through postural correction and strengthening. Pt is motivated to participate and in agreement with POC. Frequency and Duration: The patient will be seen 2x/week, x 4 weeks Short Term Goals: 1. In 2 weeks, patient will be able to complete AAROM for HEP > 130 degrees flexion and abduction. 2. In 2 weeks, patient will be able to maintain SRD during sidelying ER exercise. Desktop Support Manager Goals: 1. In 4 weeks patient will be able to shampoo her hair and pull up pants without increased pain in L shoulder. 2. Improve DASH score by 50% indicating overall reduced pain and functional use of shoulder. Treatment Plan: Modalities to reduce pain, spasms and effusion. Manual therapy to restore motion and function. Therapeutic exercise to improve strength and flexibility. Neuromuscular re-education for posture and balance. Therapeutic activities to return to functional activities of daily living. Electronically signed by: Lesly Del Rio PT, DPT Please sign and return to therapist. Thank you for your referral.
--- NOTE | 2024-03-21 11:21 | MHC.PT.DC ---
[facility] [place] Office [place] Office [place] Office [address] [phone] F: [phone] F: [phone] F: [phone] F: [phone] Physical Therapy Discharge Report Diagnosis: L shoulder pain Date of Surgery: Date of Evaluation: 08/29/23 Date of Discharge: 03/21/24 Treatments to Date: 3 Cancellations to Date: No Shows to Date: Discharge Status: Visit Non-compliance Discharge Summary: Pt is a 72yo female who was referred to PT for L shoulder pain. Skilled PT indicated to address pain, teach HEP to manage symptoms and promote periscap strength, normalize AROM and body mechanics, reduce impingement through postural correction and strengthening. Pt was in agreement with POC, attended 3 appointments with little pain improvement reported. Pt D/C'd from PT at this time due to visit non-compliance. Pt recommended to f/u with MD as needed, thank you for this referral. Electronically signed by: Lesly Del Rio PT, DPT Please sign and return to therapist. Thank you for your referral.
== END 2024-03-21 11:21 | disposition home or self-care (01) ==
LOC: HO.PT 09:00
PROVIDERS: PCP Internal Medicine; Visit Provider Internal Medicine
DX: M75.22 Bicipital tendinitis, left shoulder (principal)
CPT/HCPCS: 97110; 97140; 97161

== ENCOUNTER 2023-10-12 12:43 | Outpatient (AMB) | payer OTHER, SELFPAY ==
--- NOTE | 2023-10-12 12:50 | MHC.PC.OV ---
Vital Signs 10/12/23 12:51 Height 5 ft 1 in Weight 135 lb 0.6 oz BMI 25.5 BP 90/58 L Blood Pressure Location Lt brachial Position Sitting Pulse 91 Pulse Source Pulse Oximeter Pulse Oximetry (%) 98 Oxygen Delivery Method Room Air Intake Visit Reasons: weight loss, DM Ip Architect Required: No Allergies No Known Allergies Allergy (Verified 10/12/23 13:06) Medication List - Last Reconciled 10/12/23 by Marilynn Weston MD alprazolam 0.25 mg PO DAILY PRN levothyroxine 112 mcg PO DAILY magnesium 200 mg PO DAILY Tobacco use date assessed: 10/12/23 Fall risk assessment: No Falls in past year Last assessed Fall Risk: 10/12/23 Dental Screening Dental Screen Date: 08/01/23 HPI weight loss, DM HPI Details 72-year-old female with controlled diabetes mellitus hypothyroidism hypercholesterolemia major depression last seen in July 2023. Mammogram done in June 2023 bone density is up-to-date. Patient has seen gastroenterology in July 2023 regarding colonoscopy Cologuard requested with her cognitive impairment patient was seen by Neurology did well on MMSE advised to get sleep study. awaiting schedule. Sister recdently- did received a lette for counselling. complains also of having electrical pain L leg - advised avoid crossing legs. pulses exam negative. noted weight losss till , no sob, no cough , no abdominal pain, no constipated. [facility] Medical History (Updated 10/12/23 @ 13:27 by Marilynn Weston MD) Thyroid disorder Memory changes Hypersomnia Snoring Cognitive changes Type 2 diabetes mellitus Surgical History H/O abdominoplasty S/P complete hysterectomy Family History Mother HTN (hypertension) Father Alcoholic cirrhosis of liver Substance use disorder Brother Alcoholic cirrhosis of liver Substance use disorder Sister Liver problem Social History Housing: House Alcohol intake: current Alcohol intake frequency: holidays/special occasions only Patient Tobacco Use Status: Never used Tobacco service: No Current occupational status: retired Cognitive needs: No Hearing needs: No Vision needs: Yes Questionnaire PHQ-9 Over the last 2 weeks, how often have you been bothered by any of the following problems? 1. Little interest or pleasure in doing things: not at all 2. Feeling down, depressed, or hopeless: more than half the days 3. Trouble falling or staying asleep, or sleeping too much: more than half the days 4. Feeling tired or having little energy: more than half the days 5. Poor appetite or overeating: several days 6. Feeling bad about yourself - or that you are a failure or have let yourself or your family down: several days 7. Trouble concentrating on things, such as reading the newspaper or watching television: more than half the days 8. Moving or speaking so slowly that other people could have noticed. Or the opposite - being so fidgety or restless that you have been moving around a lot more than usual: not at all 9. Thoughts that you would be better off or of hurting yourself in some way: not at all Total score: 10 Depression Screening Interpretation: Positive (Referred to counselor) Depression Screening Done: Yes 57576 - PHQ-9 Billing: Yes Source: Developed by Drs. Odilon Copeland, Maritza Valladares, Odin Arndt and colleagues, with an educational parris from [employer]. Thrive Questionnaire Date Thrive assessed: 10/12/23 I am a: Patient What is your living situation today?: I have a steady place to live Within the past 12 months, did the food you bought not last and you didn't have the money to get more?: Never true Within the past 12 months, did you worry whether your food would run out before you got money to buy more?: Never true Do you have trouble paying for medicines?: No Do you have trouble getting transportation to medical appointments?: No Do you have trouble paying your heating and electricity bill?: No Do you have trouble taking care of your child, family member or friend?: No Do you have trouble with day-to-day activities such as bathing, preparing meals, shopping, managing finances, etc.?: No Are you currently unemployed and looking for a job?: No Are you interested in more education?: No Please select the resources that you would like help with: None THRIVE Score: 0 AUDIT C Alcohol Use Questionnaire (AUDIT-C) 1. How often do you have a drink containing alcohol?: Never 3. How often do you have six or more drinks on one occasion?: Never Total Score: 0 JANES-7 AMB Questionnaire JANES-7 Date JANES - 7 assessed: 07/06/23 Feeling nervous, anxious, or on edge: 1 = Several days Not being able to stop or control worryin = Several days Worrying too much about different things: 1 = Several days Trouble relaxin = Several days Being so restless that it is hard to sit still: 1 = Several days Becoming easily annoyed or irritable: 0 = Not at all Feeling afraid as if something awful might happen: 0 = Not at all Total JANES-7 score (0-4 normal; 5-9 mild; 10-14 moderate; 15-21 severe): 5 Source: Developed by Drs. Odilon Copeland, Maritza Valladares, Odin Arndt and colleagues, with an educational parris from [employer]. Physical exam (Primary Care) Vital Signs: Last Vital Signs Pulse 91 10/12/23 12:51 BP 90/58 L 10/12/23 12:51 Pulse Ox 98 10/12/23 12:51 Oxygen Delivery Method Room Air 10/12/23 12:51 BMI result Body Mass Index 25.5 Tobacco/Smoking Status: Tobacco use Status Tobacco use date assessed 10/12/23 10/12/23 12:52 Patient Tobacco Use Status Never used Tobacco 10/12/23 12:51 PHQ-9: PHQ-9 Score PHQ-9: Total score 10 10/12/23 13:12 Depression Screening Interpretation: Positive (Referred to counselor) Thrive Assessment: Date of Thrive Assessment Date Thrive assessed 10/12/23 10/12/23 12:52 Const General: alert; No acute distress Eyes Conjunctivae: conjunctivae normal Resp Auscultation: clear to auscultation bilaterally Cardio Rate: regular rate Rhythm: regular rhythm GI Inspection: Yes normal to inspection Extrem General: Yes normal to inspection and No edema Results AMB Hemoglobin A1c AMB Hemoglobin A1c 5.7 % Last Edit by TERI Borges on 10/12/23 13:29 Assessment and Plan Assessment & Plan (1) Cognitive changes: Comment: she did well on MMSE today . Her changes are likely relate dto age, anxiety, ? sleep apnea. Code(s): R41.89 - Other symptoms and signs involving cognitive functions and awareness Plan: Patient has met with Neurology and further workup requested. Mini-mental status exam was normal (2) Type 2 diabetes mellitus: Code(s): E11.9 - Type 2 diabetes mellitus without complications Plan: Decrease the amount of carbohydrate intake, pasta, bread, rice and potatoes are all sugar and that is aside from all the sweet stuff, remember that fruits are good but they are Sweet also. Hemoglobin A1c goal of less than 6.5. Patient is controlled (3) Colon cancer screening: Code(s): Z12.11 - Encounter for screening for malignant neoplasm of colon Plan: Cologuard testing requested (4) Hypercholesterolemia: Code(s): E78.00 - Pure hypercholesterolemia, unspecified Plan: Avoid fried foods, chicken skin, eggs, butter margarine, pastries and meat. Be it pork or beef they have a lot of cholesterol (5) Hypothyroid: Code(s): E03.9 - Hypothyroidism, unspecified (6) Situational depression: Code(s): F43.21 - Adjustment disorder with depressed mood (7) Bicipital tendinitis of left shoulder: Code(s): M75.22 - Bicipital tendinitis, left shoulder (8) Restless leg: Comment: L leg Code(s): G25.81 - Restless legs syndrome Orders: Orders AMB Hemoglobin A1c Today E11.9 - Type 2 diabetes mellitus without complications Lipid Panel Today Z13.220 - Encounter for screening for lipoid disorders Vitamin B12 and Folate Today R41.89 - Other symptoms and signs involving cognitive functions and awareness UA w Microscopic Today R63.4 - Abnormal weight loss Comprehensive [place]. Panel Fast Today E11.9 - Type 2 diabetes mellitus without complications Vitamin D 25-OH Total Today R41.89 - Other symptoms and signs involving cognitive functions and awareness XR shoulder LT min 2V Today M75.22 - Bicipital tendinitis, left shoulder Ferritin Today G25.81 - Restless legs syndrome Referrals Orthopedics Referral M75.22 - Bicipital tendinitis, left shoulder Medications: New alprazolam 0.25 mg PO DAILY PRN 14 tabs 0RF anxiety F43.21 - Adjustment disorder with depressed mood ropinirole administer 1-3 hours before bedtime 0.25 mg PO BEDTIME 30 tabs 0RF G25.81 - Restless legs syndrome Patient Instructions: Continue with thyroid medication Coding Level of Care Code Est Pt Level 4 (29119) Diagnoses Cognitive changes R41.89 Type 2 diabetes mellitus E11.9 Colon cancer screening Z12.11 Hypercholesterolemia E78.00 Hypothyroid E03.9 Situational depression F43.21 Bicipital tendinitis of left shoulder M75.22 Restless leg G25.81
[2023-10-12 12:51] VITALS: BP 90/58; PULSE 91; O2SAT 98; BMI 25.5
== END 2023-10-12 13:39 | disposition home or self-care (01) ==
PROVIDERS: PCP Internal Medicine; Visit Provider Internal Medicine
DX: R41.89 Other symptoms and signs involving cognitive functions and awareness (principal); E11.9 Type 2 diabetes mellitus without complications; Z12.11 Encounter for screening for malignant neoplasm of colon; E78.00 Pure hypercholesterolemia, unspecified; E03.9 Hypothyroidism, unspecified; F43.21 Adjustment disorder with depressed mood; M75.22 Bicipital tendinitis, left shoulder; G25.81 Restless legs syndrome
CPT/HCPCS: 83036; 99214

== ENCOUNTER 2023-10-18 07:51 | Outpatient (REF) | payer OTHER, SELFPAY ==
--- NOTE | ~2023-10-18 | XR_ITS ---
EXAMINATION: XR SHOULDER, LEFT CLINICAL INFORMATION: Bicipital tendinitis left shoulder. COMPARISON: None available. TECHNIQUE: Three views of the left shoulder. FINDINGS: Scoliosis with degenerative changes on limited views of the upper thoracic spine. Bones are diffusely demineralized. Mild degenerative changes in the acromioclavicular and glenohumeral joints. Acromioclavicular and glenohumeral alignment is preserved. Possible soft tissue calcification superior to the humeral head on the Y view is difficult to confirm due to overlying bony structures. XR/XR shoulder LT min 2V IMPRESSION: Mild degenerative changes. Possible soft tissue calcification superior to the humeral head on the Y view is difficult to confirm due to overlying bony structures.
[2023-10-18 08:09] LABS: MANUAL DIFF FLAG NO
[2023-10-18 08:16] LABS: Basophils Percent Auto 0.6 % (0-2); Eosinophils Absolute Auto 0.3 X10*3/uL (0.0-0.4); Eosinophils Percent Auto 4.6 % (0-4); Hematocrit 38.4 % (37.0-47.0); Hemoglobin 12.6 g/dl (12.0-16.0); Imm Gran Abs Auto 0.01 X10*3/uL (0.00-0.03); Imm Gran Pct Auto 0.2 % (0.0-0.4); Lymphocytes Absolute Auto 2.1 X10*3/uL (1.2-4.9); Lymphocytes Percent Auto 38.6 % (20-40); Mean Corpuscular HGB Conc 32.8 g/dl (31.0-35.0); Mean Corpuscular Hemoglobin 29.2 pg (27.0-33.0); Mean Corpuscular Volume 89.1 fL (80.0-98.0); Mean Platelet Volume 9.9 fL (9.4-12.3); Monocytes Absolute Auto 0.4 X10*3/uL (0.1-1.2); Neutrophils Absolute Auto 2.7 x10*3/uL (2.0-8.3); Platelet Count 229 X10*3/uL (160-400); Red Blood Count 4.31 X10*6/uL (4.20-5.50); Red Cell Distribution Width 13.3 % (11.0-16.0); White Blood Count 5.4 X10*3/uL (4.8-10.8)
[2023-10-18 08:43] LABS: Estimated Average Glucose 126 mg/dL
[2023-10-18 08:54] LABS: Appearance Urine Cloudy; Color Urine Dark Yellow; Glucose Urine UA Negative (Negative); Leukocyte Esterase Urine Moderate (2+) (Negative); Nitrite Urine Negative (Negative); PH 5.5 (5.0-9.0); Specific Gravity - Urine >= 1.030 (1.005-1.025); UMIC TRIGGER UA YES; Urine Blood Negative (Negative); Urine Ketones Trace mg/dL (Negative); Urine Protein 30 (1+) mg/dL (Neg-Trace)
[2023-10-18 08:58] LABS: Alanine Aminotransferase 21 U/L (0-31); Albumin Level 4.3 g/dL (3.5-5.0); Alkaline Phosphatase 90 U/L (39-117); Anion Gap 15 (12-20); Aspartate Amino Transferase 21 U/L (5-31); Bilirubin Total 0.6 mg/dL (0.0-1.0); Blood Urea Nitrogen 24 mg/dL (9-16); Calcium 9.6 mg/dL (8.4-10.2); Carbon Dioxide 22 mmol/L (22-29); Chloride 106 mmol/L (96-108); Cholesterol 236 mg/dL (<200); Estimated Glomerular Filt Rate 58; Glucose Fasting 115 mg/dL (60-99); Glucose Random 114 mg/dL (60-115); HDL Cholesterol 52 mg/dL (>40); LDL Cholesterol Calculated 160 mg/dL (<100); Sodium 139 mmol/L (135-145); Total Protein 7.3 g/dL (6.5-8.0); Triglycerides 121 mg/dL (<150)
[2023-10-18 09:05] LABS: Bacteria Urine Trace (None Seen); RBC Urine 0-2 /HPF (0-2); Squamous Epithelial Cell Urine >20 /HPF (0-2); WBC Urine >50 /HPF (0-5)
[2023-10-18 09:14] LABS: Ferritin 329 ng/mL (10-250); Free T4 (Free Thyroxine) 1.37 ng/dL (0.71-1.85); Thyroid Stimulating Hormone 0.94 uIU/mL (0.32-4.0); Vitamin D 25-OH Total 26.2 ng/mL (>30)
[2023-10-18 09:28] LABS: Folate 6.4 ng/mL (> or = 4.0); Vitamin B12 380 pg/mL (200-900)
== END 2023-10-18 07:52 | disposition home or self-care (01) ==
LOC: HO.XRAY 07:51
PROVIDERS: PCP Internal Medicine; Visit Provider Internal Medicine
DX: M75.22 Bicipital tendinitis, left shoulder (principal); R41.89 Other symptoms and signs involving cognitive functions and awareness; R63.4 Abnormal weight loss; E89.0 Postprocedural hypothyroidism; Y84.2 Radiological procedure and radiotherapy as the cause of abnormal reaction of the patient, or of later complication, without mention of misadventure at the time of the procedure; G25.81 Restless legs syndrome; Z13.220 Encounter for screening for lipoid disorders; E11.9 Type 2 diabetes mellitus without complications
CPT/HCPCS: 36415; 73030; 80053; 80061; 81001; 82306; 82607; 82728; 82746; 83036; 84439; 84443; 85025

== ENCOUNTER 2024-02-16 09:39 | Outpatient (AMB) | payer OTHER, SELFPAY ==
--- NOTE | 2024-02-16 09:41 | A.OFFPC_ITS ---
Vital Signs 02/16/24 09:42 Height 5 ft 1 in Weight 137 lb 6 oz BMI 26.0 BP 124/70 Blood Pressure Location Lt brachial Position Sitting Pulse 97 Pulse Source Pulse Oximeter Pulse Oximetry (%) 98 Oxygen Delivery Method Room Air Intake Visit Reasons: DM Follow Up Intake Note: Patient is here to follow up on DM. 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 Review of the notes has had left shoulder x-ray showing mild degenerative changes PFSH Medical History (Updated 02/16/24 @ 09:45 by Marilynn Weston MD) Depression Thyroid disorder Memory changes Hypersomnia Snoring Cognitive changes Type 2 diabetes mellitus Surgical History H/O abdominoplasty S/P complete hysterectomy Family History Mother HTN (hypertension) Father Alcoholic cirrhosis of liver Substance use disorder Brother Alcoholic cirrhosis of liver Substance use disorder Sister Liver problem Social History Housing: House Alcohol intake: current Alcohol intake frequency: holidays/special occasions only Patient Tobacco Use Status: Never used Tobacco e-Cigarette/Vaping Use: Never Used Second Hand Smoke Exposure: No service: No Current occupational status: retired Cognitive needs: No Hearing needs: No Vision needs: Yes Questionnaire Thrive Questionnaire Date Thrive assessed: 10/12/23 Are you currently unemployed and looking for a job?: No JANES-7 AMB Questionnaire JANES-7 Date JANES - 7 assessed: 07/06/23 Source: Developed by Drs. Odilon Copeland, Maritza Valladares, Odin Arndt and colleagues, with an educational parris from [employer]. Physical exam (Primary Care) Vital Signs: Last Vital Signs Pulse 97 02/16/24 09:42 BP 124/70 02/16/24 09:42 Pulse Ox 98 02/16/24 09:42 Oxygen Delivery Method Room Air 02/16/24 09:42 BMI result Body Mass Index 26.0 Tobacco/Smoking Status: Tobacco use Status Tobacco use date assessed 02/16/24 02/16/24 09:45 Patient Tobacco Use Status Never used Tobacco 02/16/24 09:45 e-Cigarette/Vaping Use Never Used 02/16/24 09:45 Thrive Assessment: Date of Thrive Assessment Date Thrive assessed 10/12/23 02/16/24 09:45 Const General: alert; No acute distress Eyes Conjunctivae: conjunctivae normal Resp Auscultation: clear to auscultation bilaterally Cardio Rate: regular rate Rhythm: regular rhythm GI Inspection: Yes normal to inspection Extrem General: Yes normal to inspection and No edema Results AMB Hemoglobin A1c AMB Hemoglobin A1c 5.9 % Last Edit by TERI Nolan on 02/16/24 09:58 Assessment and Plan Assessment & Plan (1) Type 2 diabetes mellitus: Code(s): E11.9 - Type 2 diabetes mellitus without complications Plan: Decrease the amount of carbohydrate intake, pasta, bread, rice and potatoes are all sugar and that is aside from all the sweet stuff, remember that fruits are good but they are Sweet also. Hemoglobin A1c goal of less than 7.0 patient is diet controlled. Had a long discussion with the patient with regards to the problem with diabetes and the complications discussed about Ophthalmology evaluation, discussed about urine testing. Discussed about criteria to get cholesterol under better control. (2) Hypercholesterolemia: Code(s): E78.00 - Pure hypercholesterolemia, unspecified Plan: Avoid fried foods, chicken skin, eggs, butter margarine, pastries and meat. Be it pork or beef they have a lot of cholesterol LDL goal of less than 100 and triglyceride of less than 150. Had a long discussion with the patient with regards to cholesterol. With diabetes LDL goal is less than 100 and with her not on any medication and declining medication advised to retest again and discussion on further getting cholesterol improvement. (3) Hypothyroid: Code(s): E03.9 - Hypothyroidism, unspecified Plan: Repeat blood work advised. Continue with thyroid medication Orders: Orders Microalbumin, Random (w Creat) Today E11.65 - Type 2 diabetes mellitus with hyperglycemia Lipid Panel Today E78.00 - Pure hypercholesterolemia, unspecified AMB Hemoglobin A1c Today E11.9 - Type 2 diabetes mellitus without complications Creatinine Urine Today E11.65 - Type 2 diabetes mellitus with hyperglycemia Comprehensive Met. Panel Today E78.00 - Pure hypercholesterolemia, unspecified Thyroid Stimulating Hormone Today E03.9 - Hypothyroidism, unspecified Free T4 (Free Thyroxine) Today E03.9 - Hypothyroidism, unspecified Referrals Cologuard Test Z12.11 - Encounter for screening for malignant neoplasm of colon, Z12.12 - Encounter for screening for malignant neoplasm of rectum Coding Level of Care Code Est Pt Level 4 (85508) Diagnoses Type 2 diabetes mellitus E11.9 Hypercholesterolemia E78.00 Hypothyroid E03.9
[2024-02-16 09:42] VITALS: BP 124/70; PULSE 97; O2SAT 98; BMI 26.0
== END 2024-02-16 10:16 | disposition home or self-care (01) ==
PROVIDERS: PCP Internal Medicine; Visit Provider Internal Medicine
DX: E11.9 Type 2 diabetes mellitus without complications (principal); E78.00 Pure hypercholesterolemia, unspecified; E03.9 Hypothyroidism, unspecified

== ENCOUNTER → 2024-02-16 09:39 | Outpatient (BNVA) | payer OTHER, SELFPAY | PROVIDERS: PCP Internal Medicine; Visit Provider Internal Medicine | DX: E11.9 Type 2 diabetes mellitus without complications (principal); E78.00 Pure hypercholesterolemia, unspecified; E03.9 Hypothyroidism, unspecified | CPT/HCPCS: 83036; 99212 ==

== ENCOUNTER 2024-02-21 09:15 | Outpatient (AMB) | payer OTHER, SELFPAY ==
--- NOTE | 2024-02-21 09:30 | A.OFFVIS_ITS ---
Vital Signs 02/21/24 09:31 Height 5 ft 1 in Weight 137 lb BMI 25.9 Intake Visit Reasons: 6 Month Follow Up Intake Note: Patient presents for 6 month follow up. Allergies No Known Allergies Allergy (Verified 02/21/24 09:34) Medication List - Last Reconciled 02/21/24 by CRISTOPHER Paul alprazolam 0.25 mg PO DAILY PRN levothyroxine 112 mcg PO DAILY magnesium 200 mg PO DAILY ropinirole 0.25 mg PO BEDTIME HPI Comments Details: 73-yr-old female presents for f/u visit, pt is accompanied by her , Aquiles. Pt denies any significant interval medical changes. Pt reports her memory is stable. She may forget little things, which makes her worried. She is very worried taht she will forget things so does bring her with her. For instance, she may forget about medical appointments. She may repeat herself. Her has always managed the finances. She is bale to cook w/o difficulties. She is driving w/o difficulty, but she does not like to drive alone. No accidents or near accidents. Does sometimes have left calf cramps. She states Magnesium is helpful. Is not using Requip. She does endorse snoring, low energy, needs frequent breaks, tiredness. She has not had HST yet was worried she would need a CPAP machine. Recent labs- Vit D low, Vut B12 low norm. 10/18/23 08:07 Vitamin B12 380 Folate 6.4 10/18/23 08:07 25-OH Vitamin D Total 26.2 L [facility] Medical History Depression Thyroid disorder Memory changes Hypersomnia Snoring Cognitive changes Type 2 diabetes mellitus Surgical History H/O abdominoplasty S/P complete hysterectomy Family History Mother HTN (hypertension) Father Alcoholic cirrhosis of liver Substance use disorder Brother Alcoholic cirrhosis of liver Substance use disorder Sister Liver problem Social History Housing: House Alcohol intake: current Alcohol intake frequency: holidays/special occasions only Patient Tobacco Use Status: Never used Tobacco e-Cigarette/Vaping Use: Never Used Second Hand Smoke Exposure: No service: No Current occupational status: retired Cognitive needs: No Hearing needs: No Vision needs: Yes Physical Exam Vital Signs: BMI result Body Mass Index 25.9 Const General: cooperative and no acute distress Orientation/consciousness: patient oriented x3 Resp Effort & Inspection: normal respiratory effort and able to speak in complete sentences Neuro General: patient oriented x3 Cranial nerves: Yes CN's II-XII intact bilaterally Cognition (Neuro): normal cognition Psych Appearance: grossly normal Mental Status: mental status grossly normal Speech and movement: Normal speech and movement present Affect: normal affect Attitude: cooperative Assessment & Plan Assessment & Plan (1) Cognitive changes: Comment: she did well on MMSE today . Her changes are likely relate dto age, anxiety, ? sleep apnea. Code(s): R41.89 - Other symptoms and signs involving cognitive functions and awareness Category: Medical (2) Snoring: Code(s): R06.83 - Snoring Category: Medical (3) Hypersomnia: Code(s): G47.10 - Hypersomnia, unspecified Category: Medical (4) Vitamin D deficiency: Code(s): E55.9 - Vitamin D deficiency, unspecified Category: Medical Plan Reviewed labs- Check Homocysteine and MMA level to f/u on low norm B-12. Start Vit D- may help fatigue. Continue Magnesium qhs. Pt advised to undergo HST- will resubmit order. Encouraged pt to engage in regular physical activity. f/u in 6 months or sooner prn. Orders: Orders Homocysteine Today R79.89 - Other specified abnormal findings of blood chemistry Methylmalonic Acid Today R79.89 - Other specified abnormal findings of blood chemistry RT home sleep study Today G47.10 - Hypersomnia, unspecified, R06.83 - Snoring RT home sleep study 08/21/23 G47.10 - Hypersomnia, unspecified, R06.83 - Snoring Medications: New cholecalciferol (vitamin D3) 25 mcg PO DAILY 30 caps 6RF 30 days E55.9 - Vitamin D deficiency, unspecified Coding Level of Care Code Est Pt Level 4 (23585) Diagnoses Cognitive changes R41.89 Snoring R06.83 Hypersomnia G47.10 Vitamin D deficiency E55.9
[2024-02-21 09:31] VITALS: BMI 25.9
== END 2024-02-21 10:40 | disposition home or self-care (01) ==
PROVIDERS: PCP Internal Medicine; Visit Provider Nurse Practitioner Family
DX: R41.89 Other symptoms and signs involving cognitive functions and awareness (principal); R06.83 Snoring; G47.10 Hypersomnia, unspecified; E55.9 Vitamin D deficiency, unspecified
CPT/HCPCS: 99214

== ENCOUNTER → 2024-02-21 09:15 | Outpatient (BNVA) | payer OTHER, MEDICARE, SELFPAY | PROVIDERS: PCP Internal Medicine; Visit Provider Nurse Practitioner Family | DX: R41.89 Other symptoms and signs involving cognitive functions and awareness (principal); R06.83 Snoring; G47.10 Hypersomnia, unspecified; E55.9 Vitamin D deficiency, unspecified | CPT/HCPCS: 99212 ==

== ENCOUNTER 2024-02-29 08:10 | Outpatient (REF) | payer OTHER, SELFPAY ==
[2024-02-29 09:47] LABS: Alanine Aminotransferase 29 U/L (0-31); Albumin Level 4.4 g/dL (3.5-5.0); Alkaline Phosphatase 99 U/L (39-117); Anion Gap 11 (12-20); Aspartate Amino Transferase 26 U/L (5-31); Bilirubin Total 0.4 mg/dL (0.0-1.0); Blood Urea Nitrogen 18 mg/dL (9-16); Calcium 9.7 mg/dL (8.4-10.2); Carbon Dioxide 25 mmol/L (22-29); Chloride 108 mmol/L (96-108); Cholesterol 252 mg/dL (<200); Estimated Glomerular Filt Rate > 60; Glucose Random 125 mg/dL (60-115); HDL Cholesterol 67 mg/dL (>40); LDL Cholesterol Calculated 160 mg/dL (<100); Potassium 4.4 mmol/L (3.3-5.1); Sodium 140 mmol/L (135-145); Total Protein 7.4 g/dL (6.5-8.0); Triglycerides 127 mg/dL (<150)
[2024-02-29 10:24] LABS: Free T4 (Free Thyroxine) 1.08 ng/dL (0.71-1.85); Thyroid Stimulating Hormone 19.08 uIU/mL (0.32-4.0)
[2024-02-29 10:37] LABS: Creatinine Urine 220.98 mg/dL; Microalbum/Creatinine Ratio Ur 6.3 ug/mg cr (<30)
[2024-03-05 10:43] LABS: Methylmalonic Acid 212 nmol/L (69-390)
== END 2024-02-29 08:11 | disposition home or self-care (01) ==
LOC: HO.LAB 08:10
PROVIDERS: Absent Provider Nurse Practitioner Family; PCP Internal Medicine; Visit Provider Internal Medicine
DX: E11.65 Type 2 diabetes mellitus with hyperglycemia (principal); E03.9 Hypothyroidism, unspecified; E78.00 Pure hypercholesterolemia, unspecified; E89.0 Postprocedural hypothyroidism; Y84.2 Radiological procedure and radiotherapy as the cause of abnormal reaction of the patient, or of later complication, without mention of misadventure at the time of the procedure; R79.89 Other specified abnormal findings of blood chemistry
CPT/HCPCS: 36415; 80053; 80061; 82043; 82570; 83090; 83921; 84439; 84443

== ENCOUNTER 2024-06-05 09:05 | Outpatient (REF) | payer MEDICARE, SELFPAY ==
[2024-06-05 10:52] LABS: Estimated Average Glucose 126 mg/dL
[2024-06-05 11:19] LABS: Cholesterol 243 mg/dL (<200); HDL Cholesterol 71 mg/dL (>40); LDL Cholesterol Calculated 141 mg/dL (<100); Triglycerides 156 mg/dL (<150)
[2024-06-05 11:35] LABS: Free T4 (Free Thyroxine) 1.16 ng/dL (0.71-1.85); Thyroid Stimulating Hormone 22.39 uIU/mL (0.32-4.0)
== END 2024-06-05 09:06 | disposition home or self-care (01) ==
LOC: HO.LAB 09:05
PROVIDERS: PCP Internal Medicine; Visit Provider Internal Medicine
DX: R41.89 Other symptoms and signs involving cognitive functions and awareness (principal); E78.00 Pure hypercholesterolemia, unspecified; E11.9 Type 2 diabetes mellitus without complications; F32.9 Major depressive disorder, single episode, unspecified; E55.9 Vitamin D deficiency, unspecified; E89.0 Postprocedural hypothyroidism; Y84.2 Radiological procedure and radiotherapy as the cause of abnormal reaction of the patient, or of later complication, without mention of misadventure at the time of the procedure; Z79.899 Other long term (current) drug therapy
CPT/HCPCS: 36415; 80061; 83036; 84439; 84443; 96127; 99212

== ENCOUNTER 2024-06-05 09:05 | Outpatient (AMB) | payer OTHER, SELFPAY ==
--- NOTE | 2024-06-05 09:13 | A.OFFPC_ITS ---
Vital Signs 06/05/24 09:14 Height 5 ft 1 in Weight 138 lb BMI 26.1 BP 128/70 Blood Pressure Location Lt brachial Position Sitting Pulse 73 Pulse Source Pulse Oximeter Pulse Oximetry (%) 98 Oxygen Delivery Method Room Air Intake Visit Reasons: cholesterol Allergies No Known Allergies Allergy (Verified 06/05/24 09:15) Tobacco use date assessed: 06/05/24 Fall risk assessment: No Falls in past year Last assessed Fall Risk: 06/05/24 Dental Screening Dental Screen Date: 06/05/24 Did you have a dental visit in the last 12 months?: Yes Did you have a dental problem in the last 6 months where you did not have access to dental care?: No Was dental information given to patient?: Patient has dentist HPI cholesterol HPI Details The patient is a 73-year-old female presenting with concerns regarding her laboratory findings, thyroid function, mood disorders, and cognitive status. The patient had blood work performed in early February, which showed an elevated blood sugar level and LDL cholesterol at 160 mg/dL. Hemoglobin A1c was recorded at 5.9%, indicating controlled levels as of January. Her liver function tests were within normal limits. The patient has a history of hypothyroidism, with recent thyroid function tests (from February) showing a markedly elevated TSH level of 19, suggesting insufficient absorption of her current thyroid medication dosage. The medication has been taken for a long duration, and adherence to taking it separately from food and other medications was emphasized in the conversation. She reported experiencing increased stress due to the recent sudden passing of her stepfather, which has contributed to episodes of anxiety and depression. The patient also noted that her menorrhea symptoms are aggravated, and stress is perceived to worsen her mood states. The patient underwent neurocognitive testing with neurology, performing well on the Mini-Mental State Examination, indicating no major cognitive decline. However, subjective memory concerns are still present. The patient is not currently taking vitamin D or vitamin B12 supplements, despite residing in the [facility], which may contribute to deficiencies, as discussed. Her neurologist suggested supplementation with vitamin B12 and folic acid to address potential deficiencies indicated by elevated homocysteine levels. [facility] Medical History Depression Thyroid disorder Memory changes Hypersomnia Snoring Cognitive changes Type 2 diabetes mellitus Surgical History H/O abdominoplasty S/P complete hysterectomy Family History Mother HTN (hypertension) Father Alcoholic cirrhosis of liver Substance use disorder Brother Alcoholic cirrhosis of liver Substance use disorder Sister Liver problem Social History Housing: House Alcohol intake: current Alcohol intake frequency: holidays/special occasions only Patient Tobacco Use Status: Never used Tobacco Tobacco use type: Cigarette e-Cigarette/Vaping Use: Never Used Second Hand Smoke Exposure: No service: No Current occupational status: retired Cognitive needs: No Hearing needs: No Vision needs: Yes Questionnaire PHQ-9 Over the last 2 weeks, how often have you been bothered by any of the following problems? 1. Little interest or pleasure in doing things: not at all 2. Feeling down, depressed, or hopeless: more than half the days 3. Trouble falling or staying asleep, or sleeping too much: more than half the days 4. Feeling tired or having little energy: more than half the days 5. Poor appetite or overeating: several days 6. Feeling bad about yourself - or that you are a failure or have let yourself or your family down: several days 7. Trouble concentrating on things, such as reading the newspaper or watching television: more than half the days 8. Moving or speaking so slowly that other people could have noticed. Or the opposite - being so fidgety or restless that you have been moving around a lot more than usual: not at all 9. Thoughts that you would be better off or of hurting yourself in some way: not at all Total score: 10 Depression Screening Interpretation: Positive (Referred to counselor) Depression Screening Done: Yes 10930 - PHQ-9 Billing: Yes Source: Developed by Drs. Odilon Copeland, Maritza Valladares, Odin Arndt and colleagues, with an educational parris from [employer]. Thrive Questionnaire Date Thrive assessed: 06/05/24 I am a: Patient What is your living situation today?: I have a steady place to live Within the past 12 months, did the food you bought not last and you didn't have the money to get more?: Never true Within the past 12 months, did you worry whether your food would run out before you got money to buy more?: Never true Do you have trouble paying for medicines?: No Do you have trouble getting transportation to medical appointments?: No Do you have trouble paying your heating and electricity bill?: No Do you have trouble taking care of your child, family member or friend?: No Do you have trouble with day-to-day activities such as bathing, preparing meals, shopping, managing finances, etc.?: No Are you currently unemployed and looking for a job?: No Are you interested in more education?: No Currently or been in a relationship where the following occur: No concerns reported THRIVE Score: 0 AUDIT C Alcohol Use Questionnaire (AUDIT-C) 1. How often do you have a drink containing alcohol?: Never 3. How often do you have six or more drinks on one occasion?: Never Total Score: 0 JANES-7 AMB Questionnaire JANES-7 Date JANES - 7 assessed: 06/05/24 Feeling nervous, anxious, or on edge: 0 = Not at all Not being able to stop or control worryin = Not at all Worrying too much about different things: 0 = Not at all Trouble relaxin = Not at all Being so restless that it is hard to sit still: 0 = Not at all Becoming easily annoyed or irritable: 0 = Not at all Feeling afraid as if something awful might happen: 0 = Not at all Total JANES-7 score (0-4 normal; 5-9 mild; 10-14 moderate; 15-21 severe): 0 Source: Developed by Drs. Odilon Copeland, Maritza Valladares, Odin Arndt and colleagues, with an educational parris from [employer]. Physical exam (Primary Care) Vital Signs: Last Vital Signs Pulse 73 06/05/24 09:14 BP 128/70 06/05/24 09:14 Pulse Ox 98 06/05/24 09:14 Oxygen Delivery Method Room Air 06/05/24 09:14 BMI result Body Mass Index 26.1 Tobacco/Smoking Status: Tobacco use Status Tobacco use date assessed 06/05/24 06/05/24 09:16 Patient Tobacco Use Status Never used Tobacco 06/05/24 09:16 Tobacco use type Cigarette 06/05/24 09:16 e-Cigarette/Vaping Use Never Used 06/05/24 09:16 PHQ-9: PHQ-9 Score PHQ-9: Total score 10 06/05/24 09:48 Depression Screening Interpretation: Positive (Referred to counselor) Thrive Assessment: Date of Thrive Assessment Date Thrive assessed 06/05/24 06/05/24 09:16 Currently or been in a relationship where the following occur: No concerns reported Const General: alert; No acute distress Eyes Conjunctivae: conjunctivae normal Resp Auscultation: clear to auscultation bilaterally Cardio Rate: regular rate Rhythm: regular rhythm GI Inspection: Yes normal to inspection Extrem General: Yes normal to inspection and No edema Coding Level of Care Code Est Pt Level 4 (80391) Complex EM visit Add On G2211 Diagnoses Hypothyroid E03.9 Cognitive changes R41.89 Hypercholesterolemia E78.00 Type 2 diabetes mellitus E11.9 Additional Codes PHQ-9 - 65318 - PHQ-9 Billing: Yes ([id number]) Assessment & Plan Assessment & Plan (1) Hypothyroid: Code(s): E03.9 - Hypothyroidism, unspecified Category: Medical Plan: get the blood work (2) Cognitive changes: Comment: she did well on MMSE today . Her changes are likely relate dto age, anxiety, ? sleep apnea. Code(s): R41.89 - Other symptoms and signs involving cognitive functions and awareness Category: Medical Plan: being followed up by neurology and advised sleep study (3) Hypercholesterolemia: Code(s): E78.00 - Pure hypercholesterolemia, unspecified Category: Medical (4) Type 2 diabetes mellitus: Code(s): E11.9 - Type 2 diabetes mellitus without complications Category: Medical Plan - Repeat thyroid function testing to assess current TSH levels and adjust the levothyroxine dosage accordingly. Emphasize the importance of taking the medication on an empty stomach, separate from other medications and food. - Implement lipid profile evaluation and management strategies for elevated LDL cholesterol. - Address elevated blood sugar with dietary recommendations and regular monitoring. - Prescribe vitamin D, vitamin , and folic acid supplementation to address potential deficiencies. - Initiate or continue management for anxiety and depression, including consideration of counseling therapy and pharmacotherapy as per patient preference. - Schedule follow-up visits to monitor cognitive status and address memory concerns. - Encourage compliance with treatment plans, particularly regarding mood disorder medications, and discuss potential rebound effects if medications are discontinued abruptly. Orders: Orders Hemoglobin A1c Today F32.9 - Major depressive disorder, single episode, unspecified AMB Hemoglobin A1c Today Z13.9 - Encounter for screening, unspecified Referrals Psychiatry Outpatient Consultation Service F32.9 - Major depressive disorder, single episode, unspecified Medications: New folic acid 1 mg PO DAILY 90 tabs 1RF F32.9 - Major depressive disorder, single episode, unspecified sertraline 25 mg PO DAILY 30 tabs 3RF F32.9 - Major depressive disorder, single episode, unspecified Changed From cholecalciferol (vitamin D3) 25 mcg PO DAILY 30 days 30 caps 6RF E55.9 - Vitamin D deficiency, unspecified To cholecalciferol (vitamin D3) 50 mcg PO DAILY 30 caps 6RF 30 days E55.9 - Vitamin D deficiency, unspecified Refilled cyanocobalamin (vitamin B-12) 500 mcg PO DAILY 30 tabs 6RF 30 days F32.9 - Major depressive disorder, single episode, unspecified
[2024-06-05 09:14] VITALS: BP 128/70; PULSE 73; O2SAT 98; BMI 26.1
== END 2024-06-05 10:09 | disposition home or self-care (01) ==
PROVIDERS: PCP Internal Medicine; Visit Provider Internal Medicine
DX: E03.9 Hypothyroidism, unspecified (principal); R41.89 Other symptoms and signs involving cognitive functions and awareness; E78.00 Pure hypercholesterolemia, unspecified; E11.9 Type 2 diabetes mellitus without complications

== ENCOUNTER 2024-07-23 10:40 | Outpatient (AMB) | payer MEDICARE, SELFPAY ==
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
[2024-07-23 11:12] VITALS: BP 106/62; PULSE 70; O2SAT 97; BMI 26.8
--- OUTSIDE RECORDS SUMMARY | 2024-07-23 12:46 | XMS_ITS | Clinical Summary ---
Author Organization [facility] Address [phone] [place] [address] Care Team Providers Care Utility Locate Technician Name Role Phone Erica Chopra MD Primary Care Provider [email or web address] No known active allergies Medications Medication Sig Dispensed Refills Start Date End Date Status levothyroxine (SYNTHROID, LEVOTHROID) 50 MCG tablet Take 1 tablet by mouth daily. Active FLUoxetine (PROZAC) 10 MG capsule Take 1 capsule by mouth every morning. Active Social History Tobacco Use Types Packs/Day Years Used Date Smoking Tobacco: Never Smokeless Tobacco: Never Tobacco Cessation:Counseling Given: Not Answered Alcohol Use Standard Drinks/Week Comments Never 0 (1 standard drink = 0.6 oz pur e alcohol) Education Answer Date Recorded Are you interested in more education? Not on nic e 05/18/2023 Are you concerned about learning? Not on file 05/18/2023 No 05/18/2023 No 05/18/2023 Digital Access Answer Date Recorded No 05/18/2023 No 05/18/2023 Reliable internet access at home? Not on file 05/18/2023 Device with a working camera? Not on file Intimate Partner Violence Answer Date R ecorded Are you denied basic needs s uch as food, clothing, or medical care? No 05/18/2023 In the past 12 months have y ou been in a relationship with a person who hurts, threatens, or tries to control you? No 05/18/2023 Are you denied basic needs s uch as food, clothing, or medical care? No 05/18/2023 In the past 12 months have y ou been in a relationship with a person who hurts, threatens, or tries to control you? No 05/18/2023 Sex and Gender Information Value Date Recorded Sex Assigned at Female 05/18/2023 10:41 AM EST Gender Identity Female 05/18/2023 10:41 AM EST Sexual Orientation Not on file Last Filed Vital Signs Vital Sign Reading Time Taken Comments Blood Pressure 105/65 05/18/2023 2:40 PM EST Pulse 77 05/18/2023 2:40 PM EST Temperature 35.5 ??C (95.9 ??F) 05/18/2023 2:40 PM ES T Respiratory Rate 18 05/18/2023 2:40 PM EST Oxygen Saturation 100% 05/18/2023 2:40 PM EST Inhaled Oxygen Concentration - - Weight 63.5 kg (140 lb) 05/18/2023 10:40 AM EST Height 150 cm (4' 11.06 ) 05/18/2023 10:40 AM ES T Body Mass Index 28.22 05/18/2023 10:40 AM EST Plan of Treatment Not on file Medical Devices Not on file Care Teams Utility Locate Technician Relationship Specialty Start Date End Date Erica Chopra MD [email or web address] PCP - General 06/01/17 Additional Source Comments The information contained in this document represents components of the legal health record. It is not the complete legal health record.[facility]
== END 2024-07-23 12:42 | disposition home or self-care (01) ==
PROVIDERS: PCP Internal Medicine; Visit Provider Internal Medicine
DX: E11.65 Type 2 diabetes mellitus with hyperglycemia (principal); E03.9 Hypothyroidism, unspecified; E78.00 Pure hypercholesterolemia, unspecified; F32.9 Major depressive disorder, single episode, unspecified

== ENCOUNTER → 2024-07-23 10:40 | Outpatient (BNVA) | payer MEDICARE, SELFPAY | PROVIDERS: PCP Internal Medicine; Visit Provider Internal Medicine | DX: Z00.00 Encounter for general adult medical examination without abnormal findings (principal); E11.65 Type 2 diabetes mellitus with hyperglycemia; E03.9 Hypothyroidism, unspecified; E78.00 Pure hypercholesterolemia, unspecified; F32.9 Major depressive disorder, single episode, unspecified | CPT/HCPCS: 96127; 99212 ==

== ENCOUNTER 2024-09-02 11:21 | Outpatient (AMB) | payer MEDICARE, SELFPAY ==
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
[2024-09-02 11:29] VITALS: BP 122/60; PULSE 71; O2SAT 100; BMI 27.6
--- OUTSIDE RECORDS SUMMARY | 2024-09-02 13:41 | XMS_ITS | Clinical Summary ---
Author Organization [facility] Address [address] [place] [phone] Phone Care Team Providers Care Strapping Machine Operator Name Role Phone Erica Chopra MD Primary Care Provider vidhi [email or web address] Allergies No known active allergies Medications Medication [...] on file Medical Devices Not on file [address] [facility] DIANE HAAS Kimberly Jack Personal/Family Self 1950 [address] [facility] DIANE HAAS GueroKimberly Personal/Family Self 1950 15 [facility] DAVE HAAS [place] GueroKimberly Personal/Family Self 1950 15 [facility] DIANE HA[facility] Guero Kimberly Personal/Family Self 1950 [address] [facility] [place] [id number] Estrella Personal/Family Self 1950 [address] [facility] [place] Kimberly Reyna Personal/Family Self [address] [facility] [place] [id number] Jack, Kimberly Personal/Family Self [address] [facility] [place] [id number] Jack, Kimberly Personal/Family Self 1950 [address] [place] [address] Care Teams Strapping Machine Operator Relationship Specialty Start Date End Date Erica Chopra MD [email or web address] PCP - General 06/01/17 Additional Source Comments The information contained in this document represents components of the legal health record. It is not the complete legal health record.[facility]
== END 2024-09-02 12:21 | disposition home or self-care (01) ==
LOC: HO.HSMS 11:22
PROVIDERS: PCP Internal Medicine; Visit Provider Nurse Practitioner Family
DX: R41.89 Other symptoms and signs involving cognitive functions and awareness (principal); F41.9 Anxiety disorder, unspecified; R06.83 Snoring; G47.10 Hypersomnia, unspecified; E55.9 Vitamin D deficiency, unspecified
CPT/HCPCS: 99214

== ENCOUNTER → 2024-09-02 11:21 | Outpatient (BNVA) | payer MEDICARE, SELFPAY | PROVIDERS: PCP Internal Medicine; Visit Provider Nurse Practitioner Family | DX: F41.9 Anxiety disorder, unspecified (principal); R41.89 Other symptoms and signs involving cognitive functions and awareness | CPT/HCPCS: 99212 ==

== ENCOUNTER 2024-09-05 08:33 | Outpatient (AMB) | payer MEDICARE, SELFPAY ==
[2024-09-05 08:45] VITALS: BP 112/70; PULSE 75; O2SAT 97; BMI 27.8
--- NOTE | 2024-09-05 08:45 | A.OFFPC_ITS ---
Vital Signs 09/05/24 08:45 Height 5 ft 1 in Weight 147 lb BMI 27.8 BP 112/70 Blood Pressure Location Lt brachial Position Sitting Pulse 75 Pulse Source Pulse Oximeter Pulse Oximetry (%) 97 Oxygen Delivery Method Room Air Intake Visit Reasons: JANES, major depression Budget And Policy Analyst Required: Yes Budget And Policy Analyst Language: Cymro Allergies No Known Allergies Allergy (Verified 09/05/24 08:46) Tobacco use date assessed: 06/05/24 Fall risk assessment: No Falls in past year Last assessed Fall Risk: 09/05/24 Dental Screening Dental Screen Date: 07/23/24 [facility] Medical History (Updated 09/05/24 @ 09:01 by Marilynn Weston MD) 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 Type 2 diabetes mellitus Depression Thyroid disorder Memory changes Hypersomnia Snoring Cognitive changes Surgical History H/O abdominoplasty S/P complete hysterectomy Family History Mother HTN (hypertension) Father Alcoholic cirrhosis of liver Substance use disorder Brother Alcoholic cirrhosis of liver Substance use disorder Sister Liver problem Social History Housing: House Alcohol intake: current Alcohol intake frequency: holidays/special occasions only Patient Tobacco Use Status: Never used Tobacco Tobacco use type: Cigarette e-Cigarette/Vaping Use: Never Used Second Hand Smoke Exposure: No service: No Current occupational status: retired Cognitive needs: No Hearing needs: No Vision needs: Yes Questionnaire PHQ-9 Over the last 2 weeks, how often have you been bothered by any of the following problems? 1. Little interest or pleasure in doing things: not at all 2. Feeling down, depressed, or hopeless: several days 3. Trouble falling or staying asleep, or sleeping too much: nearly every day 4. Feeling tired or having little energy: nearly every day 5. Poor appetite or overeating: not at all 6. Feeling bad about yourself - or that you are a failure or have let yourself or your family down: not at all 7. Trouble concentrating on things, such as reading the newspaper or watching television: nearly every day 8. Moving or speaking so slowly that other people could have noticed. Or the opposite - being so fidgety or restless that you have been moving around a lot more than usual: several days 9. Thoughts that you would be better off or of hurting yourself in some way: several days Total score: 12 Depression Screening Interpretation: Positive Depression Screening Done: Yes 81039 - PHQ-9 Billing: Yes Source: Developed by Drs. Odilon Copeland, Odin Hartley and colleagues, with an educational parris from [employer]. Thrive Questionnaire Date Thrive assessed: 07/23/24 JANES-7 AMB Questionnaire JANES-7 Date JANES - 7 assessed: 07/23/24 Source: Developed by Drs. Odilon Copeland, Maritza Valladares, Odin Arndt and colleagues, with an educational parris from [employer]. Physical exam (Primary Care) Vital Signs: Last Vital Signs Pulse 75 09/05/24 08:45 BP 112/70 09/05/24 08:45 Pulse Ox 97 09/05/24 08:45 Oxygen Delivery Method Room Air 09/05/24 08:45 BMI result Body Mass Index 27.8 Tobacco/Smoking Status: Tobacco use Status Tobacco use date assessed 06/05/24 09/05/24 08:45 Patient Tobacco Use Status Never used Tobacco 09/05/24 08:45 Tobacco use type Cigarette 09/05/24 08:45 e-Cigarette/Vaping Use Never Used 09/05/24 08:45 PHQ-9: PHQ-9 Score PHQ-9: Total score 12 09/05/24 09:03 Depression Screening Interpretation: Positive Thrive Assessment: Date of Thrive Assessment Date Thrive assessed 07/23/24 09/05/24 08:45 Const General: alert; No acute distress Eyes Conjunctivae: conjunctivae normal Resp Auscultation: clear to auscultation bilaterally Cardio Rate: regular rate Rhythm: regular rhythm GI Inspection: Yes normal to inspection Extrem General: Yes normal to inspection and No edema Results AMB Hemoglobin A1c AMB Hemoglobin A1c 5.8 % Last Edit by Deanne Murphy CMA on 09/05/24 09 :01 Results Reviewed Results Reviewed: Laboratory Last Values Hgb A1c (Clinic) 5.8 % (4.0-6.0) 09/05/24 08:46 Coding Level of Care Code Est Pt Level 4 (55170) Complex EM visit Add On G2211 Diagnoses Type 2 diabetes mellitus with hyperglycemia E11.65 Hypothyroid E03.9 Cognitive impairment R41.89 Hypercholesterolemia E78.00 Additional Codes PHQ-9 - 49472 - PHQ-9 Billing: Yes ([id number]) Assessment & Plan Assessment & Plan (1) Type 2 diabetes mellitus with hyperglycemia: Code(s): E11.65 - Type 2 diabetes mellitus with hyperglycemia Category: Medical Plan: Decrease the amount of carbohydrate intake, pasta, bread, rice and potatoes are all sugar and that is aside from all the sweet stuff, remember that fruits are good but they are Sweet also. This is pretty much under control hemoglobin A1c of 6.0 (2) Hypothyroid: Code(s): E03.9 - Hypothyroidism, unspecified Category: Medical Plan: Patient needs to get a retest of the blood work on the thyroid medication concern about compliance. (3) Cognitive impairment: Code(s): R41.89 - Other symptoms and signs involving cognitive functions and awareness Category: Medical Plan: Patient has seen Neurology and sent for near psychiatric workup as well as michael rn about depression and anxiety and placed on Lexapro (4) Hypercholesterolemia: Code(s): E78.00 - Pure hypercholesterolemia, unspecified Category: Medical Plan: Avoid fried foods, chicken skin, eggs, butter margarine, pastries and meat. Be it pork or beef they have a lot of cholesterol discussion about treating it. Plan History of Present Illness The patient is a 73-year-old female presenting for a follow-up of her chronic conditions and cognitive changes. She has a history of hypercholesterolemia, with her cholesterol levels previously recorded at 160 in February and 141 in May. Despite some improvement, her cholesterol remains high and has not been treated. Elevated cholesterol raises concerns, especially due to her concurrent diabetes, which places her at increased risk for cardiovascular events. Her Type 2 Diabetes Mellitus appears to be well-controlled, with a hemoglobin A1c of 6.0 noted, although she experienced elevated blood sugar in a previous assessment. Cognitive changes have been a concern, leading to a neurology referral, a minimal status exam, and subsequent referrals to psychology and neuropsychiatry. She has been placed on Lexapro and vitamin B12 as part of her treatment. There is also a history of hypothyroidism, with thyroid function tests revealing abnormal results. The patient is currently taking her thyroid medication every morning, but a follow-up blood test is required to ensure adequate dosage control. Depression and anxiety have been identified, for which she has been taking Lexapro. The patient acknowledged missing a dose recently but has resumed her medication regimen. Health Maintenance - Mammogram scheduled for June 2023 with another scheduled for next week - Bone density test performed in May 2023 - Blood work scheduled to assess thyroid function - Cholesterol and glucose management discussions - Discussion on reducing dietary cholesterol intake and increasing exercise - Recommendation for cholesterol medication initiation - Shingles and tetanus vaccinations recommended Social History - The patient does not engage in regular exercise beyond walking occasionally - Dietary habits include consumption of foods high in cholesterol such as cheese every morning - No reported substance use Review of Systems - Neurological: Reports cognitive changes - Endocrine: Denies current thyroid-related symptoms - Psychiatric: Reports depression and anxiety - Metabolic: Reports elevated blood sugar Physical Exam - Respiratory- Regular breathing in and out Results - Labs: Elevated cholesterol levels, hemoglobin A1c of 6.0, abnormal thyroid function test Plan I plan to initiate atorvastatin to manage the patient?s elevated cholesterol levels, ensuring dietary modifications are in place as supplementary measures. For cognitive and psychiatric complaints, Lexapro continues to be appropriate, with attention to ensuring regular use. For diabetes, I will maintain the current management given the controlled A1c level. Hypothyroidism requires updated lab work to verify therapeutic adequacy in dosing. I will follow up on all health maintenance measures and encourage a healthier lifestyle encompassing diet changes and exercise. Patient was informed and verbally consented to the use of an ambient scribe for clinic note documentation during this visit. Discussion Notes I discussed with the patient the necessity of managing hypercholesterolemia by initiating atorvastatin, underscoring the genetic and dietary factors contributing to her condition and the associated cardiovascular risks. We explored the benefits of cholesterol-lowering medication against potential side effects. The importance of continual adherence to psychiatric medication and the regularity of thyroid medication was emphasized, noting our next steps involve follow-up lab work to evaluate the effectiveness of existing therapy. Future planning includes further mammograms and potentially pursuing vaccinations to avert other risks. Patient Instructions - Fill and start atorvastatin as discussed - Adhere to Lexapro and thyroid medications as prescribed - Attend the lab for blood tests, especially for thyroid and cholesterol levels - Maintain a low-cholesterol diet and regulate sugar intake - Engage in regular physical exercise, such as walking daily - Get vaccinations and mammograms as scheduled - Follow up in three months for cholesterol and general review Orders: Orders Thyroid Stimulating Hormone 3 Months E78.00 - Pure hypercholesterolemia, unspecified AMB Hemoglobin A1c Today Z13.9 - Encounter for screening, unspecified Lipid Panel 3 Months E78.00 - Pure hypercholesterolemia, unspecified Comprehensive Met. Panel 3 Months E78.00 - Pure hypercholesterolemia, unspecified Free T4 (Free Thyroxine) 3 Months E78.00 - Pure hypercholesterolemia, unspecified Medications: New simvastatin 5 mg PO BEDTIME 30 tabs 3RF E78.00 - Pure hypercholesterolemia, unspecified
--- OUTSIDE RECORDS SUMMARY | 2024-09-05 08:45 | XMS_ITS | Clinical Summary ---
Author Organization [facility] Address [address] [place] [phone] Phone Care Team Providers Care Digital Printer Operator Name Role Phone Erica Chopra MD Primary Care Provider vidhi [email or web address] Allergies No known active allergies Medications Medication [...] file Medical Devices Not on file 15 [facility] DIANE HAAS Kimberly Jack Personal/Family Self 1950 [address] [facility] DIANE HAAS GueroKimberly Personal/Family Self 1950 [address] [facility] DAVE HAAS [place] GueroKimberly Personal/Family Self 1950 [address] [facility] DIANE HAAS Guero Kimberly Personal/Family Self 1950 [address] [facility] [place] [id number] Estrella Personal/Family Self 1950 [address] [facility] [place] Kimberly Reyna Personal/Family Self 1950 [address] [facility] [place] [id number] Jack, Kimberly Personal/Family Self 1950 [address] [facility] [place] [place] [id number] Jack, Kimberly Personal/Family Self 1950 [address] [place] [address] Care Teams Digital Printer Operator Relationship Specialty Start Date End Date Erica Chopra MD [email or web address] PCP - General 06/01/17 Additional Source Comments The information contained in this document represents components of the legal health record. It is not the complete legal health record.[facility]
== END 2024-09-05 11:25 | disposition home or self-care (01) ==
LOC: HO.HMCH 08:33
PROVIDERS: PCP Internal Medicine; Visit Provider Internal Medicine
DX: E11.65 Type 2 diabetes mellitus with hyperglycemia (principal); E03.9 Hypothyroidism, unspecified; R41.89 Other symptoms and signs involving cognitive functions and awareness; E78.00 Pure hypercholesterolemia, unspecified; Z13.9 Encounter for screening, unspecified

== ENCOUNTER → 2024-09-05 08:33 | Outpatient (BNVA) | payer MEDICARE, SELFPAY | PROVIDERS: PCP Internal Medicine; Visit Provider Internal Medicine | DX: K21.9 Gastro-esophageal reflux disease without esophagitis (principal); E03.9 Hypothyroidism, unspecified; E11.65 Type 2 diabetes mellitus with hyperglycemia; R41.89 Other symptoms and signs involving cognitive functions and awareness; E78.00 Pure hypercholesterolemia, unspecified | CPT/HCPCS: 83036; 96127; 99212 ==

== ENCOUNTER 2024-12-05 13:27 | Outpatient (AMB) | payer MEDICARE, SELFPAY ==
[2024-12-05 13:36] VITALS: BP 100/62; PULSE 70; TEMP 36.6; O2SAT 97; BMI 26.9
--- NOTE | 2024-12-05 13:36 | MHC.OFFWIV ---
Intake Vital Signs 12/05/24 13:36 Height 5 ft 1 in Weight 142 lb 8 oz BMI 26.9 BP 100/62 Blood Pressure Location Rt brachial Position Sitting Pulse 70 Temp 97.8 F Temp Source Oral Pulse Oximetry (%) 97 Oxygen Delivery Method Room Air Intake Visit Reasons: EP Dizzy, medication reason? Intake Note: Patient present with dizziness for about 3 month not sure if due to medications Patient Tobacco Use Status: Never used Tobacco Parks And Recreation Worker Required: Yes Is last menstrual period known: No Post menopausal: Yes Patient : No Allergies No Known Allergies Allergy (Verified 12/05/24 13:42) Medication List - Last Reconciled 12/05/24 by Sarah Rose PA-C levothyroxine 125 mcg PO DAILY 30 days Do you need a note to return to daycare/school/sports/work: No HPI HPI Comments History of Present Illness Details History - The patient is a 74-year-old female presenting with dizziness x 3 months - The dizziness occurs primarily upon waking and when changing positions, described as a spinning sensation. - The dizziness has been ongoing for approximately three months without associated nausea, vomiting, or headaches. - No interventions have been attempted for the dizziness. - Denies any URI symptoms or seasonal allergies. PE General: Cooperative, healthy appearing, comfortable, no acute distress and well developed Orientation: Patient oriented x3 Limitations: No limitations Head: Normal to inspection Ears: External ears normal bilaterally, TM's with fluid on right side, unable to see left TM as cerumen blocking Face and sinus: Normal facial exam Mouth: moist mucus membranes, posterior oropharynx normal (difficult to see) Neck: Normal visual inspection and Yes full ROM Respiratory: Normal respiratory effort and able to speak in complete sentences. 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 Type 2 diabetes mellitus Depression Thyroid disorder Memory changes Hypersomnia Snoring Cognitive changes Surgical History H/O abdominoplasty S/P complete hysterectomy Family History Mother HTN (hypertension) Father Alcoholic cirrhosis of liver Substance use disorder Brother Alcoholic cirrhosis of liver Substance use disorder Sister Liver problem Social History Housing: House Alcohol intake: current Alcohol intake frequency: holidays/special occasions only Patient Tobacco Use Status: Never used Tobacco Tobacco use type: Cigarette e-Cigarette/Vaping Use: Never Used Second Hand Smoke Exposure: No Patient : No service: No Current occupational status: retired Cognitive needs: No Hearing needs: No Vision needs: Yes Review of Systems Const All systems reviewed & are unremarkable except as noted in HPI and below Physical Exam Vital Signs: Last Vital Signs Temp 97.8 F 12/05/24 13:36 Pulse 70 12/05/24 13:36 BP 100/62 12/05/24 13:36 Pulse Ox 97 12/05/24 13:36 Oxygen Delivery Method Room Air 12/05/24 13:36 BMI result Body Mass Index 26.9 Assessment & Plan Assessment & Plan (1) Acute otitis media with effusion of right ear: Code(s): H65.191 - Other acute nonsuppurative otitis media, right ear Plan: - no infection noted, only fluid on exam - Prescribed Flonase to help dry up the fluid in the ear. - Recommended Benadryl at night to aid in drying up the fluid and help with sleep. - Suggested an allergy pill daily to assist in fluid reduction. Patient was informed and verbally consented to the use of an ambient scribe for clinic note documentation during this visit. Medications: New fluticasone propionate 50 mcg/actuation administer into each nostril 1 spray intranasal Q24H 48 grams 0RF 90 days Coding Level of Care Code Est Pt Level 3 (50893) Diagnoses Acute otitis media with effusion of right ear H65.191
== END 2024-12-05 14:38 | disposition home or self-care (01) ==
PROVIDERS: PCP Internal Medicine; Visit Provider Physician Assistant
DX: H65.191 Other acute nonsuppurative otitis media, right ear (principal)

== ENCOUNTER → 2024-12-05 13:27 | Outpatient (BNVA) | payer MEDICARE, SELFPAY | PROVIDERS: PCP Internal Medicine; Visit Provider Physician Assistant | DX: H65.191 Other acute nonsuppurative otitis media, right ear (principal) | CPT/HCPCS: 99212 ==

== ENCOUNTER 2024-12-21 07:10 | Outpatient (REF) | payer MEDICARE, SELFPAY ==
[2024-12-21 12:33] LABS: Alanine Aminotransferase 23 U/L (0-31); Albumin Level 4.1 g/dL (3.5-5.0); Alkaline Phosphatase 91 U/L (39-117); Anion Gap 9 (12-20); Aspartate Amino Transferase 25 U/L (5-31); Blood Urea Nitrogen 20 mg/dL (9-16); Calcium 8.7 mg/dL (8.4-10.2); Carbon Dioxide 23 mmol/L (22-29); Chloride 113 mmol/L (96-108); Cholesterol 149 mg/dL (<200); Estimated Glomerular Filt Rate > 60; HDL Cholesterol 43 mg/dL (>40); Magnesium 2.3 mg/dL (1.6-2.6); Potassium 4.1 mmol/L (3.3-5.1); Sodium 141 mmol/L (135-145); Total Protein 6.5 g/dL (6.5-8.0); Triglycerides 85 mg/dL (<150)
[2024-12-21 12:50] LABS: Free T4 (Free Thyroxine) 2.02 ng/dL (0.71-1.85); Thyroid Stimulating Hormone 0.11 uIU/mL (0.32-4.0)
[2024-12-26 12:34] LABS: Vitamin D 25-OH, D2 <4 ng/mL; Vitamin D 25-OH, D3 21 ng/mL; Vitamin D 25-OH, Total 21 ng/mL (30-100)
== END 2024-12-21 07:11 | disposition home or self-care (01) ==
LOC: HO.HMGCLDS 07:10
PROVIDERS: Nurse Practitioner Family; PCP Internal Medicine; Visit Provider Internal Medicine
DX: E78.00 Pure hypercholesterolemia, unspecified (principal); E55.9 Vitamin D deficiency, unspecified; F32.9 Major depressive disorder, single episode, unspecified
CPT/HCPCS: 36415; 80053; 80061; 82306; 83735; 84439; 84443

== ENCOUNTER 2024-12-25 08:52 | Outpatient (AMB) | payer MEDICARE, SELFPAY ==
[2024-12-25 09:00] VITALS: BP 116/62; PULSE 71; RESP 18; TEMP 36.1; O2SAT 98; BMI 26.3
--- NOTE | 2024-12-25 09:00 | MHC.PC.OV ---
Vital Signs 12/25/24 09:00 Height 5 ft 1 in Weight 139 lb 6 oz BMI 26.3 BP 116/62 Blood Pressure Location Rt brachial Position Sitting Respiration 18 Pulse 71 Pulse Source Pulse Oximeter Temp 97.0 F Temp Source Temporal Artery Scan Pulse Oximetry (%) 98 Oxygen Delivery Method Room Air Intake Visit Reasons: 3 month f/u Allergies No Known Allergies Allergy (Verified 12/25/24 09:20) Tobacco use date assessed: 12/25/24 Fall risk assessment: No Falls in past year Last assessed Fall Risk: 12/25/24 Dental Screening Dental Screen Date: 12/25/24 Did you have a dental visit in the last 12 months?: No Did you have a dental problem in the last 6 months where you did not have access to dental care?: No Was dental information given to patient?: Patient has dentist [facility] Medical History 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 Type 2 diabetes mellitus Depression Thyroid disorder Memory changes Hypersomnia Snoring Cognitive changes Surgical History H/O abdominoplasty S/P complete hysterectomy Family History Mother HTN (hypertension) Father Alcoholic cirrhosis of liver Substance use disorder Brother Alcoholic cirrhosis of liver Substance use disorder Sister Liver problem Social History Housing: House Alcohol intake: current Alcohol intake frequency: holidays/special occasions only Patient Tobacco Use Status: Never used Tobacco e-Cigarette/Vaping Use: Never Used Second Hand Smoke Exposure: No service: No Current occupational status: retired Cognitive needs: No Hearing needs: No Vision needs: Yes Questionnaire PHQ-9 Over the last 2 weeks, how often have you been bothered by any of the following problems? 1. Little interest or pleasure in doing things: not at all 2. Feeling down, depressed, or hopeless: several days 3. Trouble falling or staying asleep, or sleeping too much: nearly every day 4. Feeling tired or having little energy: nearly every day 5. Poor appetite or overeating: not at all 6. Feeling bad about yourself - or that you are a failure or have let yourself or your family down: not at all 7. Trouble concentrating on things, such as reading the newspaper or watching television: nearly every day 8. Moving or speaking so slowly that other people could have noticed. Or the opposite - being so fidgety or restless that you have been moving around a lot more than usual: several days 9. Thoughts that you would be better off or of hurting yourself in some way: several days Total score: 12 Depression Screening Interpretation: Positive Depression Screening Done: Yes Source: Developed by Drs. Odilon Copeland, Maritza Valladares, Odin Arndt and colleagues, with an educational parris from [employer]. Thrive Questionnaire Date Thrive assessed: 07/23/24 I am a: Patient What is your living situation today?: I have a steady place to live Within the past 12 months, did the food you bought not last and you didn't have the money to get more?: Never true Within the past 12 months, did you worry whether your food would run out before you got money to buy more?: Never true Do you have trouble paying for medicines?: No Do you have trouble getting transportation to medical appointments?: Yes Do you have trouble paying your heating and electricity bill?: Yes Do you have trouble taking care of your child, family member or friend?: No Do you have trouble with day-to-day activities such as bathing, preparing meals, shopping, managing finances, etc.?: Yes Are you currently unemployed and looking for a job?: No Are you interested in more education?: No THRIVE Score: 2 AUDIT C Alcohol Use Questionnaire (AUDIT-C) 1. How often do you have a drink containing alcohol?: Never 3. How often do you have six or more drinks on one occasion?: Never Total Score: 0 JANES-7 AMB Questionnaire JANES-7 Date JANES - 7 assessed: 07/23/24 Feeling nervous, anxious, or on edge: 3 = Nearly every day Not being able to stop or control worryin = Several days Worrying too much about different things: 1 = Several days Trouble relaxin = Several days Being so restless that it is hard to sit still: 0 = Not at all Becoming easily annoyed or irritable: 2 = More than half the days Feeling afraid as if something awful might happen: 1 = Several days Total JANES-7 score (0-4 normal; 5-9 mild; 10-14 moderate; 15-21 severe): 9 Source: Developed by Drs. Odilon Copeland, Maritza Valladares, Odin Arndt and colleagues, with an educational parris from [employer]. Physical exam (Primary Care) Vital Signs: Last Vital Signs Temp 97.0 F 12/25/24 09:00 Pulse 71 12/25/24 09:00 Resp 18 12/25/24 09:00 BP 116/62 12/25/24 09:00 Pulse Ox 98 12/25/24 09:00 Oxygen Delivery Method Room Air 12/25/24 09:00 BMI result Body Mass Index 26.3 Tobacco/Smoking Status: Tobacco use Status Tobacco use date assessed 12/25/24 12/25/24 09:02 Patient Tobacco Use Status Never used Tobacco 12/25/24 09:02 Tobacco use type 12/25/24 09:02 e-Cigarette/Vaping Use Never Used 12/25/24 09:02 PHQ-9: PHQ-9 Score PHQ-9: Total score 12 12/25/24 10:00 Depression Screening Interpretation: Positive Thrive Assessment: Date of Thrive Assessment Date Thrive assessed 07/23/24 12/25/24 09:02 Const General: alert; No acute distress Eyes Conjunctivae: conjunctivae normal Resp Auscultation: clear to auscultation bilaterally Cardio Rate: regular rate Rhythm: regular rhythm GI Inspection: Yes normal to inspection Extrem General: Yes normal to inspection and No edema Results AMB Hemoglobin A1c AMB Hemoglobin A1c 6.3 % Last Edit by Bev Kapadia CMA on 12/25/24 09:26 Results Reviewed Results Reviewed: Laboratory Last Values Hgb A1c (Clinic) 6.3 % (4.0-6.0) H 12/25/24 09:25 Coding Level of Care Code Est Pt Level 4 (40860) Complex EM visit Add On G2211 Diagnoses Hypercholesterolemia E78.00 Type 2 diabetes mellitus with hyperglycemia E11.65 Hypothyroid E03.9 Acute otitis media with effusion of right ear H65.191 Colon cancer screening Z12.11 Cognitive changes R41.89 Meningioma D32.9 Assessment & Plan Assessment & Plan (1) Hypercholesterolemia: Code(s): E78.00 - Pure hypercholesterolemia, unspecified Category: Medical Plan: Avoid fried foods, chicken skin, eggs, butter margarine, pastries and meat. Be it pork or beef they have a lot of cholesterol LDL goal of less than 100 and triglyceride of less than 150. Patient is at goal (2) Type 2 diabetes mellitus with hyperglycemia: Code(s): E11.65 - Type 2 diabetes mellitus with hyperglycemia Category: Medical Plan: Decrease the amount of carbohydrate intake, pasta, bread, rice and potatoes are all sugar and that is aside from all the sweet stuff, remember that fruits are good but they are Sweet also. Hemoglobin A1c goal of less than 7.0. Patient is diet controlled (3) Hypothyroid: Code(s): E03.9 - Hypothyroidism, unspecified Category: Medical Plan: Discussed about thyroid numbers that was previously high and now low. (4) Acute otitis media with effusion of right ear: Code(s): H65.191 - Other acute nonsuppurative otitis media, right ear Category: Medical Plan: Resolved (5) Colon cancer screening: Code(s): Z12.11 - Encounter for screening for malignant neoplasm of colon Category: Medical Plan: Reminded about colonoscopy (6) Cognitive changes: Comment: she did well on MMSE today . Her changes are likely relate dto age, anxiety, ? sleep apnea. Code(s): R41.89 - Other symptoms and signs involving cognitive functions and awareness Category: Medical Plan: Patient will follow-up with Neurology (7) Meningioma: Comment: 12/2022There is a 2 cm high right parafalcine meningioma. No adjacent parenchymal edema. Code(s): D32.9 - Benign neoplasm of meninges, unspecified Category: Medical Plan History of Present Illness The patient is a 74-year-old female presenting for a follow-up visit. The patient has a history of being overweight and has recently noted weight loss. She has a past medical history of meningioma, which was diagnosed previously. The patient has hypercholesterolemia, which is currently well-managed with an LDL cholesterol level of 89 mg/dL. Her cholesterol management plan includes maintaining an LDL goal of less than 100 mg/dL and triglycerides less than 150 mg/dL. The patient reports cognitive impairment, which has been a concern for her and her family. She underwent a simple cognitive test in August, which she performed well, but further neuropsychiatric evaluation has been recommended due to ongoing memory issues. The patient has a history of hypothyroidism, previously with elevated thyroid levels, now presenting with low levels, indicating potential overmedication. Her thyroid medication dosage is being adjusted to address this issue. The patient has diabetes mellitus, with a recent hemoglobin A1c of 6.3%, which is higher than her previous level of 5.8%. Her diabetes is currently diet-controlled, and no additional medication is required at this time. In November, the patient was treated for acute otitis media with Flonase. Preventative care measures include a mammogram last done in June 2023 and a bone density test in May 2023. Health Maintenance - Mammogram last performed in June 2023 - Bone density test last performed in May 2023 - Cholesterol management with LDL goal of less than 100 mg/dL and triglycerides less than 150 mg/dL Social History - Family: Patient lives alone but plans to move to [place] to live with her son. - Functional Status: Reports dizziness upon waking, but no falls reported. Review of Systems - Neurological: Reports dizziness upon waking, denies falls. - Cardiovascular: Denies chest pain or palpitations. - Musculoskeletal: Denies pain on movement. Physical Exam - Neurological: No acute deficits noted, patient is neurologically stable - Musculoskeletal: Normal strength and tone, no pain on movement - Cardiovascular: Regular rate and rhythm, no murmurs or gallops Results - Labs: Normal blood count, electrolytes, and renal function; blood sugar at 110 mg/dL, hemoglobin A1c at 6.3% - Labs: LDL cholesterol at 89 mg/dL, thyroid levels indicating hyperthyroidism Plan The patient's hypercholesterolemia is well-managed with an LDL level of 89 mg/dL, and the plan is to maintain the LDL goal of less than 100 mg/dL and triglycerides less than 150 mg/dL. Her diabetes mellitus is currently diet-controlled, with a hemoglobin A1c of 6.3%, and no additional medication is required at this time. The patient's thyroid medication dosage is being adjusted due to low thyroid levels, indicating potential overmedication. A follow-up thyroid test is planned in two months to reassess the levels after the dosage adjustment. For cognitive impairment, a neuropsychiatric evaluation is recommended to further assess memory issues, as the patient has shown some forgetfulness despite performing well on a simple cognitive test. The patient is advised to follow up with neurology for further management. Preventative care includes ensuring up-to-date mammograms and bone density tests, with the last mammogram in June 2023 and bone density in May 2023. Patient was informed and verbally consented to the use of an ambient scribe for clinic note documentation during this visit. Discussion Notes During the visit, I discussed with the patient the management of her hypercholesterolemia and the importance of maintaining her LDL and triglyceride levels within the target range to reduce cardiovascular risk. We also reviewed her diabetes management, emphasizing that her current diet-controlled status is adequate, and no additional medication is necessary at this time. I explained the need to adjust her thyroid medication due to low thyroid levels and the plan to reassess in two months. For her cognitive concerns, I recommended a neuropsychiatric evaluation to further investigate her memory issues and advised follow-up with neurology. We discussed the importance of staying current with preventative screenings, including mammograms and bone density tests. Patient Instructions - Continue current diet to manage diabetes and maintain blood sugar levels. - Take thyroid medication as prescribed and follow up in two months for reassessment. - Schedule and attend a neuropsychiatric evaluation for memory concerns. - Ensure mammogram and bone density screenings are up to date. Orders: Orders MR head/brain w con Today D32.9 - Benign neoplasm of meninges, unspecified Lipid Panel 2 Months E78.00 - Pure hypercholesterolemia, unspecified AMB Hemoglobin A1c Today Z13.9 - Encounter for screening, unspecified Comprehensive Met. Panel 2 Months E78.00 - Pure hypercholesterolemia, unspecified Referrals Neuropsychiatry Referral F41.9 - Anxiety disorder, unspecified, R41.89 - Other symptoms and signs involving cognitive functions and awareness Medications: New levothyroxine 112 mcg PO DAILY 30 caps 4RF E03.9 - Hypothyroidism, unspecified Discontinued levothyroxine Discontinued Reason: Doctor's Order 125 mcg PO DAILY 30 days 30 tabs 3RF E03.9 - Hypothyroidism, unspecified
--- OUTSIDE RECORDS SUMMARY | 2024-12-25 09:15 | XMS_ITS | Clinical Summary ---
Author Organization [facility] Address [address] [place] [id number] Phone Care Team Providers Care Surveillance Systems Analyst Name Role Phone Erica Chopra MD Primary Care Provider vidhi [email or web address] No known active allergies Medications levothyroxine (SYNTHROID, LEVOTHROID) 50 MCG tablet Take [...] or tries to control you? No 05/18/2023 Comments Unknown Sex and Gender Information Value Date Recorded Sex Assigned at Female 05/18/2023 10:41 AM EST Legal Sex Female 10:37 PM EDT Gender Identity Female 05/18/2023 10:41 AM EST Sexual Orientation Not on file Last Filed Vital Signs Vital Sign Reading Time Taken Comments Blood Pressure 105/65 05/18/2023 2:40 PM EST Pulse 77 05/18/2023 2:40 PM EST Temperature 35.5 C (95.9 F) 05/18/2023 2:40 PM EST Respiratory Rate 18 05/18/2023 2:40 PM EST Oxygen Saturation 100% 05/18/2023 2:40 PM EST Inhaled Oxygen Concentration - - Weight 63.5 kg (140 lb) 05/18/2023 10:40 AM EST Height 150 cm (4' 11.06 ) 05/18/2023 10:40 AM ES T Body Mass Index 28.22 05/18/2023 10:40 AM EST Plan of Treatment Not on file Medical Devices Not on file [place] [id number] MEDICARE PART A & B MEDICARE PART A & B MEDICARE PART A & B MEDICARE PART A & B MEDICARE PART A & B Care Teams Surveillance Systems Analyst Relationship Specialty Start Date End Date Erica Chopra MD [email or web address] [email or web address] - General 06/01/17 Additional Source Comments The information contained in this document represents components of the legal health record. It is not the complete legal health record.[facility]
== END 2024-12-25 10:39 | disposition home or self-care (01) ==
PROVIDERS: PCP Internal Medicine; Visit Provider Internal Medicine
DX: E78.00 Pure hypercholesterolemia, unspecified (principal); E11.65 Type 2 diabetes mellitus with hyperglycemia; D32.9 Benign neoplasm of meninges, unspecified; E03.9 Hypothyroidism, unspecified; H65.191 Other acute nonsuppurative otitis media, right ear; Z12.11 Encounter for screening for malignant neoplasm of colon; R41.89 Other symptoms and signs involving cognitive functions and awareness

== ENCOUNTER → 2024-12-25 08:52 | Outpatient (BNVA) | payer MEDICARE, SELFPAY | PROVIDERS: PCP Internal Medicine; Visit Provider Internal Medicine | DX: E78.00 Pure hypercholesterolemia, unspecified (principal); E11.65 Type 2 diabetes mellitus with hyperglycemia; E03.9 Hypothyroidism, unspecified; H65.191 Other acute nonsuppurative otitis media, right ear; D32.9 Benign neoplasm of meninges, unspecified | CPT/HCPCS: 83036; 99212 ==